=== PATIENT | female | born 1960 | race Caucasian/White ===

== ENCOUNTER 2017-05-02 18:29 | Emergency (ER) | payer OTHER ==
[2017-05-02 18:48] VITALS: BP 144/80
--- NOTE | 2017-05-02 19:42 | RAD ---
Indication: Right rib pain. 3 views of the right ribs are reviewed. There is no fracture or dislocation noted. No pneumothorax is noted. There is superior subluxation of the right humeral head. No alveolar consolidation is noted. IMPRESSION: No fracture of the right ribs is noted.
--- NOTE | 2017-05-02 20:44 | UC ---
UC General HPI - HPI Summary HPI Summary: RIGHT LOWER RIB PAIN, PAIN WITH DEEP BREATH. STILL HAS GALLBLADDER. NO COUGH. NO CHEST PAIN. HISTORY OF PNEUMONIA SEVERAL TIMES LAST YEAR. NO FEVER. NO NAUSEA OR VOMITING - History of Current Complaint Chief Complaint: UCRespiratory Stated Complaint: RIB PAIN Time Seen by Provider: 05/02/17 18:52 Hx Obtained From: Patient Hx Last Menstrual Period: Sep 2012 (currently going through menopause) Onset/Duration: Gradual Onset, Lasting Days, Still Present Timing: Intermittent Episodes Lasting: Onset Severity: Moderate Current Severity: Mild Pain Intensity: 2 Associated Signs & Symptoms: Positive: Abdominal Pain - ?RUQ, Other - RIGHT LOWER RIB PAIN. Negative: Cough, Chest Pain, Diarrhea, Dysuria, Edema, Fever, Headache, Syncope, SOB, Trauma, Wheezing - Allergy/Home Medications Allergies/Adverse Reactions: Allergies Allergy/AdvReac Type Severity Reaction Status Date / Time Celecoxib [From Celebrex] Allergy Severe Anaphylatic Verified 05/02/17 18:40 Shock Penicillins Allergy Severe Anaphylatic Verified 05/02/17 18:40 Shock Sulfa Drugs Allergy Severe Anaphylatic Verified 05/02/17 18:40 Shock Infliximab [From Remicade] Allergy Unknown neurological Verified 05/02/17 18:40 symptoms Azathioprine Allergy Anaphylatic Verified 05/02/17 18:40 Shock ENVIRONMENTAL Allergy Post Nasal Uncoded 08/03/16 07:37 Drip Home Medications: Home Medications Bp Med* 1 tab PO DAILY 05/02/17 [History Confirmed 05/02/17] Ibuprofen TAB* [Advil TAB*] 400 mg PO PRN 05/02/17 [History] Potassium Injection* MONTHLY 05/02/17 [History] Valsartan TAB* [Diovan TAB*] 05/02/17 [History] PMH/Surg Hx/FS Hx/Imm Hx Previously Healthy: Yes - Surgical History Surgical History: Yes Surgery Procedure, Year, and Place: 1995 RESECTION OF COLON(LARGE PORTION OF LARGE INTESTINES, [place]. 2005 EXCISION OF VULVAR LESION RIGHT SIDE, [facility] [place]. 2011 DILATION CURETTAGE, HYSTEROSCOPY, POLYPECTOMY WITH CERVICAL BIOPSY, [facility] [place]. 2013 BILATERAL HIP REPLACEMENT, [place], [place]. 2014 LUMBAR DISCECTOMY, [place], [place] - Family History Known Family History: Positive: Hypertension - Social History Occupation: Employed Full-time Lives: With Family Alcohol Use: Occasionally Substance Use Type: None Smoking Status (MU): Former Smoker Type: Cigarettes Amount Used/How Often: 3 PPD Length of Time of Smoking/Using Tobacco: 13 YEARS Have You Smoked in the Last Year: No When Did the Patient Quit Smoking/Using Tobacco: 1985 Review of Systems Constitutional: Negative Skin: Negative Eyes: Negative ENT: Negative Respiratory: Negative Cardiovascular: Negative Gastrointestinal: Abdominal Pain - MILD RUQ ABDOMINAL PAIN Genitourinary: Negative Motor: Negative Neurovascular: Negative Musculoskeletal: Arthralgia - RIGHT LOWER RIB Neurological: Negative Psychological: Negative All Other Systems Reviewed And Are Negative: Yes Physical Exam Triage Information Reviewed: Yes Appearance: Well-Appearing, No Pain Distress, Well-Nourished Vital Signs: Initial Vital Signs Temp 98.9 F 05/02/17 18:33 Pulse 92 05/02/17 18:33 Resp 20 05/02/17 18:33 Pulse Ox 100 05/02/17 18:33 Vital Signs Reviewed: Yes Eye Exam: Normal ENT Exam: Normal ENT: Positive: Normal ENT inspection, Hearing grossly normal, TMs normal Dental Exam: Normal Neck exam: Normal Neck: Positive: Supple, Nontender Respiratory: Positive: Lungs clear, Normal breath sounds, No respiratory distress, No accessory muscle use. Negative: Chest non-tender - RIGHT LOWER RIB TENDERNESS Cardiovascular Exam: Normal Cardiovascular: Positive: RRR, No Murmur, Pulses Normal Abdomen Description: Positive: No Organomegaly, Soft. Negative: Nontender - RUQ Musculoskeletal Exam: Normal Musculoskeletal: Positive: Strength Intact, ROM Intact Neurological Exam: Normal Psychological Exam: Normal Skin Exam: Normal Course/Dx - Course Course Of Treatment: DEBINET ADVISED TO SEEK CARE T EMERGENCY DEPARTMENT IF CONDITION CONTINUES, WORSENS OR IF NEW SYMPTOMS DEVELOP - Differential Dx - Multi-Symptom Differential Diagnoses: Metabolic Abnormality, Sepsis, Other - GALL BLADDER, LIVER DISEASE, CROHNS Provider Diagnoses: RIGHT LOWER RIB PAIN Discharge - Discharge Plan Condition: Stable Disposition: HOME Patient Education Materials: Rib Contusion (ED) Referrals: Wilfredo Greene MD [Primary Care Provider] - Additional Instructions: PLEASE SEEK PROMPT EVALUATION OF RUQ PAIN. SEEK CARE IMMEDIATELY IF YOU EXPERIENCE WORSENING RUQ, FEVER, OR ANY NEW SYMPTOMS.
== END 2017-05-02 20:15 | disposition home or self-care (01) ==
LOC: UCEAST 18:29
DX: R07.81 Pleurodynia (principal); Z88.0 Allergy status to penicillin; Z88.2 Allergy status to sulfonamides; Z88.8 Allergy status to other drugs, medicaments and biological substances; Z87.891 Personal history of nicotine dependence
CPT/HCPCS: 99211; G0463

== ENCOUNTER 2017-05-03 16:38 | Emergency (ER) | payer OTHER ==
--- NOTE | 2017-05-03 20:12 | RAD ---
Indication: Right upper quadrant pain. Real-time sonography of the right upper quadrant was performed. The liver is enlarged measuring 20 cm in length. It is diffusely increased in echogenicity consistent with hepatic steatosis. The gallbladder demonstrates no evidence of gallstones, pericholecystic fluid or wall thickening. The common duct measures 6 mm. The right kidney measures 11.3 x 4.0 x 5.6 cm with no hydronephrosis. The pancreas demonstrates no mass or pancreatic duct dilatation where visualized. Aorta and inferior vena cava are unremarkable. IMPRESSION: Enlarged echogenic liver consistent with hepatic steatosis. No evidence of cholelithiasis or biliary duct dilatation is noted.
[2017-05-03] MEDS ORDERED: HYDROcodone/ACETAMIN 5-325 MG* 1 TAB PO ONE (21:38)
[2017-05-03] MEDS ORDERED: HYDROcodone/ACETAMIN 5-325 MG* 1 TAB ONE (22:26)
[2017-05-03 22:37] VITALS: BP 156/89
--- NOTE | 2017-05-03 22:51 | ED ---
Ann Becerra Alfonso, scribed for Alex Shell MD on 05/03/17 at 1915 . Abdominal Pain/Female - HPI Summary HPI Summary: This patient is a 57 year old F presenting to [facility] with a chief complaint of RUQ abdominal pain since a few days ago. The patient rates the pain 8/10 in severity. Symptoms aggravated by nothing. Symptoms alleviated by nothing. Patient reports cough, and right lower rib pain. Patient denies calf swelling, CP, fever, nausea, and vomiting. PMHx includes Crohns disease, multiple myeloma. - History of Current Complaint Chief Complaint: EDAbdPain Stated Complaint: RT SIDED ABD PAIN Time Seen by Provider: 05/03/17 18:26 Hx Obtained From: Patient Onset/Duration: Sudden Onset, Lasting Days, Still Present Timing: Constant Severity Initially: Severe Severity Currently: Severe Pain Intensity: 8 Pain Scale Used: 0-10 Numeric Location: Discrete At: RUQ Aggravating Factor(s): Nothing Alleviating Factor(s): Nothing Associated Signs and Symptoms: Positive: Other: - cough, and right lower rib pain. Patient denies calf swelling, CP, fever, nausea, and vomiting. Allergies/Adverse Reactions: Allergies Allergy/AdvReac Type Severity Reaction Status Date / Time Celecoxib [From Celebrex] Allergy Severe Anaphylatic Verified 05/02/17 18:40 Shock Penicillins Allergy Severe Anaphylatic Verified 05/02/17 18:40 Shock Sulfa Drugs Allergy Severe Anaphylatic Verified 05/02/17 18:40 Shock Infliximab [From Remicade] Allergy Unknown neurological Verified 05/02/17 18:40 symptoms Azathioprine Allergy Anaphylatic Verified 05/02/17 18:40 Shock ENVIRONMENTAL Allergy Post Nasal Uncoded 08/03/16 07:37 Drip PMH/Surg Hx/FS Hx/Imm Hx Endocrine/Hematology History: Reports: 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 Denies: Hx Diabetes Cardiovascular History: Reports: Hx Hypertension - CONTROL WITH MEDS, Other Cardiovascular Problems/Disorders - DVT IN LEG 30 YEARS AGO Denies: Hx Pacemaker/ICD Respiratory History: Reports: Hx Asthma, Hx Chronic Obstructive Pulmonary Disease (COPD) - YES ?, Other Respiratory Problems/Disorders - RECENT URI - NO PROBLEMS NOW GI History: Reports: Hx Crohn's Disease, Hx Gastroesophageal Reflux Disease - ACID REFLUX - PRN MEDS History: Denies: Hx Dialysis, Hx Renal Disease Musculoskeletal History: Reports: Hx Arthritis - GENERALIZED, Hx Back Problems - chronic low back pain Denies: Hx Osteoporosis Sensory History: Reports: Hx Contacts or Glasses - GLASSES Denies: Hx Hearing Aid Opthamlomology History: Reports: Hx Contacts or Glasses - GLASSES Neurological History: Reports: Other Neuro Impairments/Disorders - 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 2005 EXCISION OF VULVAR LESION RIGHT SIDE, [facility] [place]. 2011 DILATION CURETTAGE, HYSTEROSCOPY, POLYPECTOMY WITH CERVICAL BIOPSY, [facility] [place]. 2012 BILATERAL HIP REPLACEMENT, [place], [place]. 2014 LUMBAR DISCECTOMY, [place], [place] Hx Anesthesia Reactions: Yes - WOKE DURING ONE OF HIP SURGERY RELATED TO "MEDICATION PUSH" Infectious Disease History: Reports: Hx Shingles Denies: Traveled Outside the in Last 30 Days - Family History Known Family History: Positive: Hypertension - Social History Alcohol Use: Occasionally Substance Use Type: Reports: None Hx Tobacco Use: No Smoking Status (MU): Former Smoker Type: Cigarettes Amount Used/How Often: 3 PPD Length of Time of Smoking/Using Tobacco: 13 YEARS Have You Smoked in the Last Year: No Review of Systems Negative: Fever Negative: Chest Pain Positive: Cough Positive: Abdominal Pain. Negative: Vomiting, Nausea Positive: Other - right lower rib pain; negative calf swelling All Other Systems Reviewed And Are Negative: Yes Physical Exam Triage Information Reviewed: Yes Vital Signs On Initial Exam: Initial Vitals Temp Pulse Resp BP Pulse Ox 97.4 F 78 20 177/110 100 05/03/17 16:47 05/03/17 16:47 05/03/17 16:47 05/03/17 16:47 05/03/17 16:47 Vital Signs Reviewed: Yes Appearance: Positive: Well-Appearing, No Pain Distress Skin: Positive: Warm, Skin Color Reflects Adequate Perfusion, Dry Head/Face: Positive: Normal Head/Face Inspection Eyes: Positive: Normal ENT: Positive: Normal ENT inspection Neck: Positive: Supple, Nontender Respiratory/Lung Sounds: Positive: Clear to Auscultation, Breath Sounds Present Cardiovascular: Positive: RRR Abdomen Description: Positive: Soft, Other: - Tender in the right anterior lateral lower ribs. Mild RUQ tenderness. Bowel Sounds: Positive: Present Musculoskeletal: Positive: Normal Neurological: Positive: Normal, Sensory/Motor Intact, Alert, Oriented to Person Place, Time, CN Intact II-III Psychiatric: Positive: Affect/Mood Appropriate - [place] Coma Scale Coma Scale Total: 15 Diagnostics - Vital Signs Vital Signs Temp Pulse Resp BP Pulse Ox 05/03/17 18:43 98.4 F 99 20 163/78 99 05/03/17 16:47 97.4 F 78 20 177/110 100 - Laboratory Lab Results: Lab Results 05/03/17 Range/Units 19:49 D-Dimer, Quantitative < 200 (Less Than 230) ng/mL Lab Statement: Any lab studies that have been ordered have been reviewed, and results considered in the medical decision making process. - Additional Comments Diagnostic Additional Comments: US GALL BLADDER reveals, per radiologist, Enlarged echogenic liver consistent with hepatic steatosis. No evidence of cholelithiasis or biliary duct dilatation is noted. ED physician has reviewed this radiology report and agrees. Abdominal Pain Fem Course/Dx - Course Course Of Treatment: Ms. Garces presented with right chest wall pain that is getting worse. She was diagnosed yesterday. Her W/U here was negative and I gave her some pain medicine. - Diagnoses Provider Diagnoses: Chest wall pain Discharge - Discharge Plan Condition: Stable Disposition: HOME Prescriptions: HYDROcodone/ACETAMIN 5-325 MG* [Soldier 5-325 TAB*] 1 tab PO Q6H PRN #20 tab MDD 4 PRN Reason: Pain Patient Education Materials: Chest Wall Pain (ED) Referrals: Wilfredo Greene MD [Primary Care Provider] - The documentation as recorded by the Ann hernández Alfonso accurately reflects the service I personally performed and the decisions made by me, Alex Shell MD.
== END 2017-05-03 22:34 | disposition home or self-care (01) ==
LOC: ED 16:38
DX: R07.89 Other chest pain (principal); Z87.891 Personal history of nicotine dependence; C90.00 Multiple myeloma not having achieved remission; M19.90 Unspecified osteoarthritis, unspecified site; I10 Essential (primary) hypertension; J44.9 Chronic obstructive pulmonary disease, unspecified; K21.9 Gastro-esophageal reflux disease without esophagitis; R10.11 Right upper quadrant pain
CPT/HCPCS: 36415; 76705; 85379; 99282

== ENCOUNTER 2018-01-03 08:54 | Emergency (ER) | payer OTHER ==
[2018-01-03] MEDS ORDERED: HYDROcodone/ACETAMIN 5-325 MG* 1 TAB PO ONE (09:29)
--- NOTE | 2018-01-03 10:00 | RAD ---
INDICATION: RIGHT side chest pain. Bronchitis. Cough for 10 days. COMPARISON: August 13, 2017 TECHNIQUE: Dual energy PA and routine lateral views of the chest were obtained. REPORT: Mildly elevated lung volumes. Minimal linear atelectasis at the LEFT mid to lower lung zone without change. No alveolar consolidation concerning for pneumonia. No suspicious focal pulmonary lesion, pleural effusion, or pneumothorax. The heart, pulmonary vasculature, and mediastinal contours are unremarkable. IMPRESSION: Stigmata of potential obstructive lung disease. No evidence for pneumonia.
[2018-01-03] MEDS ORDERED: LORazepam TAB(*) 1 MG PO ONE (12:03)
[2018-01-03 12:21] LABS: Hematocrit 38 % (35-47); Hemoglobin 12.3 g/dl (12.0-16.0); Mean Corpuscular HGB Conc 33 g/dl (31-36); Mean Corpuscular Hemoglobin 30 pg (27-31); Mean Corpuscular Volume 90 fL (80-97); Mean Platelet Volume 7.8 um3 (7.4-10.4); Platelet Count 266 10^3/ul (150-450); Red Blood Count 4.17 10^6/ul (4.0-5.4); Red Cell Distribution Width 14 % (10.5-15); White Blood Count 11.6 10^3/ul (3.5-10.8)
[2018-01-03 12:49] LABS: EGFR Non-African American 98.9 (>60)
[2018-01-03 13:05] LABS: ABS Basophils 0.1 10^3/ul (0-0.2); ABS Eosinophils 0.2 10^3/ul (0-0.6); ABS Lymphocytes 1.8 10^3/ul (1.0-4.8); ABS Monocytes 0.6 10^3/ul (0-0.8)
[2018-01-03 13:07] LABS: Monocytes % 6 % (0-7)
[2018-01-03 15:36] VITALS: BP 143/80
--- NOTE | 2018-01-03 18:31 | ED ---
Vik Becerra Stephanie, scribed for Alex Shell MD on 01/03/18 at 0926 . Complex/Multi-Sys Presentation - HPI Summary HPI Summary: The pt is a 57 y/o F presenting to the ED with c/o R lateral rib pain that began 2 days ago. The pt believes she has broken a rib as a result from coughing. She is currently being treated for bronchitis. She is taking levaquin and she took 2 Advil [employer]. - History Of Current Complaint Chief Complaint: EDChestWallPain Time Seen by Provider: 01/03/18 09:07 Hx Obtained From: Patient Onset/Duration: Gradual Onset, Lasting Days - 2, Still Present Timing: Constant Severity Currently: Moderate Location: Pain At: - R side of ribs Character: Sharp Aggravating Factor(s): movement Alleviating Factor(s): nothing Associated Signs And Symptoms: Positive: Cough, Other - Allergies/Home Medications Allergies/Adverse Reactions: Allergies Allergy/AdvReac Type Severity Reaction Status Date / Time azathioprine Allergy Severe Anaphylatic Verified 01/03/18 10:08 Shock celecoxib [From Celebrex] Allergy Severe Anaphylatic Verified 01/03/18 10:05 Shock Penicillins Allergy Severe Anaphylatic Verified 01/03/18 10:06 Shock Sulfa (Sulfonamide Allergy Severe Anaphylatic Verified 01/03/18 10:07 Antibiotics) Shock infliximab [From Remicade] Allergy Unknown Unknown Verified 01/03/18 10:08 Reaction Details ENVIRONMENTAL Allergy Runny Nose Uncoded 01/03/18 10:09 Home Medications: Home Medications Levofloxacin TAB* [Levaquin TAB*] 500 mg PO DAILY 01/03/18 [History Confirmed ] Potassium Chlor TAB* [Klor Con ER TAB*] 20 meq PO DAILY 01/03/18 [History Confirmed 01/03/18] Promethazine/Dextromethorphan [Promethazine-Dm Syrup] 10 ml PO Q6HR PRN [History Confirmed 01/03/18] Spironolactone TAB* [Aldactone TAB*] 25 mg PO DAILY 01/03/18 [History Confirmed 01/03/18] Valsartan TAB* [Diovan TAB*] 320 mg PO DAILY 01/03/18 [History Confirmed ] amLODIPine TAB* [Norvasc 5 mg TAB*] 10 mg PO DAILY 01/03/18 [History Confirmed 01/03/18] guaiFENesin LIQ* [Robitussin*] 10 ml PO Q8HR PRN 01/03/18 [History Confirmed 12/18] PMH/Surg Hx/FS Hx/Imm Hx Endocrine/Hematology History: Reports: 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 Denies: Hx Diabetes Cardiovascular History: Reports: Hx Hypertension - CONTROL WITH MEDS, Other Cardiovascular Problems/Disorders - DVT IN LEG 30 YEARS AGO Denies: Hx Pacemaker/ICD Respiratory History: Reports: Hx Asthma, Hx Chronic Obstructive Pulmonary Disease (COPD) - YES ?, Other Respiratory Problems/Disorders - RECENT URI - NO PROBLEMS NOW GI History: Reports: Hx Crohn's Disease, Hx Gastroesophageal Reflux Disease - ACID REFLUX - PRN MEDS History: Denies: Hx Dialysis, Hx Renal Disease Musculoskeletal History: Reports: Hx Arthritis - GENERALIZED, Hx Back Problems - chronic low back pain Denies: Hx Osteoporosis Sensory History: Reports: Hx Contacts or Glasses - GLASSES Denies: Hx Hearing Aid Opthamlomology History: Reports: Hx Contacts or Glasses - GLASSES Neurological History: Reports: Other Neuro Impairments/Disorders - 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 2005 EXCISION OF VULVAR LESION RIGHT SIDE, [facility] [place]. 2011 DILATION CURETTAGE, HYSTEROSCOPY, POLYPECTOMY WITH CERVICAL BIOPSY, [facility] [place]. 2013 BILATERAL HIP REPLACEMENT, [place], [place]. 2014 LUMBAR DISCECTOMY, [place], [place] Hx Anesthesia Reactions: Yes - WOKE DURING ONE OF HIP SURGERY RELATED TO "MEDICATION PUSH" Infectious Disease History: No Infectious Disease History: Reports: Hx Shingles Denies: Traveled Outside the in Last 30 Days - Family History Known Family History: Positive: Hypertension - Social History Occupation: Employed Full-time Lives: Alone Alcohol Use: Occasionally Hx Substance Use: No Substance Use Type: Reports: None Hx Tobacco Use: No Smoking Status (MU): Former Smoker Type: Cigarettes Amount Used/How Often: 3 PPD Length of Time of Smoking/Using Tobacco: 13 YEARS Have You Smoked in the Last Year: No Review of Systems Negative: Fever Positive: Cough Positive: Other - R sided lateral rib pain All Other Systems Reviewed And Are Negative: Yes Physical Exam - Summary Physical Exam Summary: Appearance: The patient is well-nourished in no acute distress and in no acute pain. Skin: The skin is warm and dry and skin color reflects adequate perfusion. HEENT: The head is normocephalic and atraumatic. The pupils are equal and reactive. The conjunctivae are clear and without drainage. Nares are patent and without drainage. Mouth reveals moist mucous membranes and the throat is without erythema and exudate. The external ears are intact. The ear canals are patent and without drainage. The tympanic membranes are intact. Neck: the neck is supple with full range of motion and non-tender. There are no carotid bruits. There is no neck vein distension. Respiratory: Chest is non-tender. Lungs are clear to auscultation and breath sounds are symmetrical and equal. Cardiovascular: Heart is regular rate and rhythm. There is no murmur or rub auscultated. There is no peripheral edema and pulses are symmetrical and equal. Abdomen: The abdomen is soft and non-tender. There are normal bowel sounds heard in all four quadrants and there is no organomegaly palpated. Musculoskeletal: There is no back tenderness noted. Extremities are non-tender with full range of motion. There is good capillary refill. There is no peripheral edema or calf tenderness elicited. She is tender over anterolateral R lower chest wall Neurological: Patient is alert and oriented to person, place and time. The patient has symmetrical motor strength in all four extremities. Cranial nerves are grossly intact. Deep tendon reflexes are symmetrical and equal in all four extremities. Psychiatric: The patient has an appropriate affect and does not exhibit any anxiety or depression. Triage Information Reviewed: Yes Vital Signs On Initial Exam: Initial Vitals Temp Pulse Resp BP Pulse Ox 98.7 F 95 17 149/88 97 01/03/18 08:56 01/03/18 08:56 01/03/18 08:56 01/03/18 08:56 01/03/18 08:56 Vital Signs Reviewed: Yes Diagnostics - Vital Signs Vital Signs Temp Pulse Resp BP Pulse Ox 01/03/18 08:56 98.7 F 95 17 149/88 97 - Laboratory Lab Results: Lab Results 01/03/18 01/03/18 01/03/18 Range/Units 12:07 12:07 12:08 WBC 11.6 H (3.5-10.8) 10^3/ul RBC 4.17 (4.0-5.4) 10^6/ul Hgb 12.3 (12.0-16.0) g/dl Hct 38 (35-47) % MCV 90 (80-97) fL MCH 30 (27-31) pg MCHC 33 (31-36) g/dl RDW 14 (10.5-15) % Plt Count 266 (150-450) 10^3/ul MPV 7.8 (7.4-10.4) um3 Neut % (Auto) Not Reportable Lymph % (Auto) Not Reportable Cook % (Auto) Not Reportable Eos % (Auto) Not Reportable Baso % (Auto) Not Reportable Absolute Neuts (auto) 9.0 H (1.5-7.7) 10^3/ul Absolute Lymphs (auto) 1.8 (1.0-4.8) 10^3/ul Absolute Monos (auto) 0.6 (0-0.8) 10^3/ul Absolute Eos (auto) 0.2 (0-0.6) 10^3/ul Absolute Basos (auto) 0.1 (0-0.2) 10^3/ul Absolute Nucleated RBC Not Reportable Immature Gran % 1 (0-9) % Neutrophils % 79 (38-83) % Lymphocytes % 10 L (25-47) % Reactive Lymphs % 2 (0-6) % Monocytes % 6 (0-7) % Eosinophils % 2 (0-6) % Basophils % 0 (0-2) % Myelocytes % 1 (0-1) % Nucleated RBC % Not Reportable Abs Neuts (Manual) 9.2 H (1.5-7.7) 10^3/ul Abs Lymphs (Manual) 1.2 (1.0-4.8) 10^3/ul Abs Monocytes (Manual) 0.7 (0-0.8) 10^3/ul Absolute Eos (Manual) 0.2 (0-0.6) 10^3/ul Abs Basophils (Manual) 0 (0-0.2) 10^3/ul Normal RBC Morphology Normal (Normal) Hem Pathologist Commnt D-Dimer, Quantitative 210 (Less Than 230) ng/mL Sodium 141 (139-145) mmol/L Potassium 4.2 (3.5-5.0) mmol/L Chloride 108 (101-111) mmol/L Carbon Dioxide 27 (22-32) mmol/L Anion Gap 6 (2-11) mmol/L BUN 12 (6-24) mg/dL Creatinine 0.62 (0.51-0.95) mg/dL Est GFR ( Amer) 127.1 (>60) Est GFR (Non-Af Amer) 98.9 (>60) BUN/Creatinine Ratio 19.4 (8-20) Glucose 109 H (70-100) mg/dL Calcium 8.8 (8.6-10.3) mg/dL Total Bilirubin 0.30 (0.2-1.0) mg/dL AST 21 (13-39) U/L ALT 26 (7-52) U/L Alkaline Phosphatase 90 (34-104) U/L Total Protein 7.5 (6.4-8.9) g/dL Albumin 3.5 (3.2-5.2) g/dL Globulin 4.0 (2-4) g/dL Albumin/Globulin Ratio 0.9 L (1-3) Result Diagrams: 01/03/18 12:07 01/03/18 12:08 Lab Statement: Any lab studies that have been ordered have been reviewed, and results considered in the medical decision making process. - Radiology CXR Xray Interpretation: No Acute Changes Radiology Interpretation Completed By: Radiologist - Stigmata of potential obstructive lung disease. No evidence for pneumonia. ED physician has reviewed this report. Re-Evaluation - Re-Evaluation First Eval Re-Evaluation Time: 13:59 Change: Unchanged - The pt states she feels no improvement of symptoms at this time. Second Eval Re-Evaluation Time: 15:05 Change: Unchanged - The pt states she feels unchanged at this time. Complex Multi-Symp Course/Dx Course Of Treatment: Ms. Garces was diagnosed with bronchitis recently and given antibiotics which has helped. She feels like she may have broken a rib on the right from all the coughing which has happened in the past. She didn't want any tests but relented when her pain wasn't easily controlled with medication. The W/U was WNL and it certainly seems like a chest wall pain and could still be a rib injury. - Diagnoses Provider Diagnoses: Chest wall pain Discharge - Sign-Out/Discharge Documenting (check all that apply): Discharge/Admit/Transfer - discharge - Discharge Plan Condition: Stable Disposition: HOME Prescriptions: Hydrocodone/Acetaminophen [[place] 10-325 Tablet] 1 each PO Q6HR #20 tablet MDD 4 LORazepam TAB(*) [Ativan TAB(*)] 1 mg PO Q6H PRN #20 tab MDD 4 PRN Reason: Pain Patient Education Materials: Chest Wall Pain (ED) Referrals: Wilfredo Greene MD [Primary Care Provider] - 2 Days Additional Instructions: Return to ED for new or worsening symptoms. - Billing Disposition and Condition Condition: STABLE Disposition: HOME The documentation as recorded by the Vik hernández Stephanie accurately reflects the service I personally performed and the decisions made by me, Alex Shell MD.
== END 2018-01-03 15:34 | disposition home or self-care (01) ==
LOC: ED 08:54
DX: R07.9 Chest pain, unspecified (principal); J40 Bronchitis, not specified as acute or chronic; Z87.891 Personal history of nicotine dependence; I10 Essential (primary) hypertension; C90.00 Multiple myeloma not having achieved remission; J44.9 Chronic obstructive pulmonary disease, unspecified; Z88.2 Allergy status to sulfonamides
CPT/HCPCS: 36415; 71046; 80053; 85025; 85060; 85379; 99283; A9270-GY

== ENCOUNTER 2018-01-19 22:37 | Emergency (ER) | payer OTHER ==
--- NOTE | 2018-01-19 23:11 | ED ---
Lower Extremity - HPI Summary HPI Summary: Complains of swelling in left lower extremity 1 week, with pain in the lower calf starting today. Pain worse with dorsiflexion or plantar flexion. States has been very inactive today and yesterday due to not feeling well. Denies loss of sensation or function, trauma.. History of blood clot in her left lower leg when she was 19. Denies recent estrogen supplements, recent surgery or trauma, smoking, CP, SOB. No anti-coag. Also denies fever, cough, sore throat, N/V/D, abdomen pain, change in urinary BM. Medical history is asthma, HTN, multiple myeloma, arthritis. - History of Current Complaint Chief Complaint: EDExtremityLower Stated Complaint: LT LEG SWOLLEN Time Seen by Provider: 01/19/18 22:50 Hx Obtained From: Patient Hx Last Menstrual Period: Sep 2012 (currently going through menopause) Mechanism Of Injury: Unknown Onset of Pain: Days Onset/Duration: Days Severity Currently: Moderate Pain Intensity: 7 Pain Scale Used: 0-10 Numeric Aggravating Factor(s): Ambulation Alleviating Factor(s): Elevation Able to Bear Weight: Yes - Risk Factors DVT Risk Factors: Prior DVT - Allergies/Home Medications Allergies/Adverse Reactions: Allergies Allergy/AdvReac Type Severity Reaction Status Date / Time azathioprine Allergy Severe Anaphylatic Verified 01/19/18 22:43 Shock celecoxib [From Celebrex] Allergy Severe Anaphylatic Verified 01/19/18 22:43 Shock Penicillins Allergy Severe Anaphylatic Verified 01/19/18 22:43 Shock Sulfa (Sulfonamide Allergy Severe Anaphylatic Verified 01/19/18 22:43 Antibiotics) Shock infliximab [From Remicade] Allergy Unknown Unknown Verified 01/19/18 22:43 Reaction Details ENVIRONMENTAL Allergy Runny Nose Uncoded 01/19/18 22:43 PMH/Surg Hx/FS Hx/Imm Hx Endocrine/Hematology History: Reports: 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 Denies: Hx Diabetes Cardiovascular History: Reports: Hx Hypertension - CONTROL WITH MEDS, Other Cardiovascular Problems/Disorders - DVT IN LEG 30 YEARS AGO Denies: Hx Pacemaker/ICD Respiratory History: Reports: Hx Asthma, Hx Chronic Obstructive Pulmonary Disease (COPD) - YES ?, Other Respiratory Problems/Disorders - RECENT URI - NO PROBLEMS NOW GI History: Reports: Hx Crohn's Disease, Hx Gastroesophageal Reflux Disease - ACID REFLUX - PRN MEDS History: Denies: Hx Dialysis, Hx Renal Disease Musculoskeletal History: Reports: Hx Arthritis - GENERALIZED, Hx Back Problems - chronic low back pain Denies: Hx Osteoporosis Sensory History: Reports: Hx Contacts or Glasses - GLASSES Denies: Hx Hearing Aid Opthamlomology History: Reports: Hx Contacts or Glasses - GLASSES Neurological History: Reports: Other Neuro Impairments/Disorders - 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 2005 [place] L[place] [facility] [place] DILATION CURETTAGE, HYSTEROSCOPY, POLYPECTOMY WITH CERVICAL BIOPSY, [facility] [place]. 2012 BILATERAL HIP REPLACEMENT, [place], [place]. 2014 LUMBAR DISCECTOMY, [place], [place] Hx Anesthesia Reactions: Yes - WOKE DURING ONE OF HIP SURGERY RELATED TO "MEDICATION PUSH" - Immunization History Date of Tetanus Vaccine: utd Date of Influenza Vaccine: utd Infectious Disease History: No Infectious Disease History: Reports: Hx Shingles Denies: Traveled Outside the in Last 30 Days - Family History Known Family History: Positive: Hypertension - Social History Alcohol Use: Occasionally Hx Substance Use: No Substance Use Type: Reports: None Hx Tobacco Use: No Smoking Status (MU): Former Smoker Type: Cigarettes Amount Used/How Often: 3 PPD Length of Time of Smoking/Using Tobacco: 13 YEARS Have You Smoked in the Last Year: No Review of Systems Constitutional: Negative Eyes: Negative ENT: Negative Cardiovascular: Negative Respiratory: Negative Gastrointestinal: Negative Genitourinary: Negative Musculoskeletal: Negative Skin: Negative Neurological: Negative Psychological: Normal All Other Systems Reviewed And Are Negative: Yes Physical Exam - Summary Physical Exam Summary: Swelling with pitting edema to left lower extremity. Positive calf tenderness. Positive Homans sign, pain with dorsiflexion and plantar flexion. No erythema , extra warmth, ecchymosis to left lower extremity noted. Pulses present. PMS intact. Patient states no pain at rest, pain with dorsiflexion, plantar flexion and palpation of left calf. Triage Information Reviewed: Yes Vital Signs On Initial Exam: Initial Vitals Temp Pulse Resp BP Pulse Ox 97.6 F 109 20 186/123 97 05/20/18 22:38 01/19/18 22:38 01/19/18 22:38 01/19/18 22:38 01/19/18 22:38 Vital Signs Reviewed: Yes Appearance: Positive: Well-Appearing Skin: Positive: Warm Head/Face: Positive: Normal Head/Face Inspection Eyes: Positive: Normal Neck: Positive: Supple Respiratory/Lung Sounds: Positive: Clear to Auscultation Cardiovascular: Positive: Normal Abdomen Description: Positive: Nontender Musculoskeletal: Positive: Normal Neurological: Positive: Normal Psychiatric: Positive: Normal AVPU Assessment: Alert - [place] Coma Scale Best Eye Response: 4 - Spontaneous Best Motor Response: 6 - Obeys Commands Best Verbal Response: 5 - Oriented Coma Scale Total: 15 Diagnostics - Vital Signs Vital Signs Temp Pulse Resp BP Pulse Ox 01/19/18 23:03 184/90 01/19/18 22:38 97.6 F 109 20 186/123 97 - Laboratory Result Diagrams: 01/20/18 00:59 01/20/18 00:59 Lab Statement: Any lab studies that have been ordered have been reviewed, and results considered in the medical decision making process. - Ultrasound No standard instances Ultrasound Interpretation: No Acute Changes - No DVT Ultrasound Interpretation Completed By: Radiologist Lower Extremity Course/Dx - Course Course Of Treatment: Left lower extremity swelling and Tenderness. No indication of DVT per ultrasound. Labs and vital signs within normal limits. Follow-up with primary care. - Diagnoses Provider Diagnoses: Swelling of left lower extremity Discharge - Sign-Out/Discharge Documenting (check all that apply): Discharge/Admit/Transfer - Discharge Plan Condition: Stable Disposition: HOME Patient Education Materials: Leg Edema (ED) Referrals: Wilfredo Greene MD [Primary Care Provider] - Additional Instructions: Follow-up with primary care. Return to the ED for any new or worsening symptoms - Billing Disposition and Condition Condition: STABLE Disposition: HOME
[2018-01-20 01:13] LABS: ABS Basophils 0.2 10^3/ul (0-0.2); ABS Eosinophils 0.3 10^3/ul (0-0.6); ABS Lymphocytes 2.7 10^3/ul (1.0-4.8); ABS Monocytes 0.8 10^3/ul (0-0.8); ABS Neutrophils 8.2 10^3/ul (1.5-7.7); ABS Nucleated RBC 0 10^3/ul; Eosinophil % 2.3 % (0-6); Hematocrit 37 % (35-47); Hemoglobin 12.1 g/dl (12.0-16.0); Lymphocyte % 22.1 % (25-47); Mean Corpuscular HGB Conc 33 g/dl (31-36); Mean Corpuscular Hemoglobin 30 pg (27-31); Mean Corpuscular Volume 89 fL (80-97); Nucleated Red Blood Cells % 0.1; Platelet Count 277 10^3/ul (150-450); Red Blood Count 4.09 10^6/ul (4.0-5.4); Red Cell Distribution Width 14 % (10.5-15); White Blood Count 12.1 10^3/ul (3.5-10.8)
[2018-01-20 01:30] LABS: EGFR Non-African American 79.4 (>60)
[2018-01-20 02:11] VITALS: BP 182/68
--- NOTE | 2018-01-20 07:55 | RAD ---
INDICATION: Pain and swelling. COMPARISON: None TECHNIQUE: Duplex interrogation of the Lowerextremity was performed. FINDINGS: Deep veins: The common femoral, great saphenous, profunda femoris, proximal, mid, and distal deep femoral, popliteal, posterior tibial, and peroneal veins are patent. There is normal compressibility, augmentation, and phasic flow. Superficial veins: There are no findings of superficial thrombophlebitis. Popliteal fossa:There is no evidence of a popliteal cyst. Soft tissues:There are no soft tissue abnormalities. IMPRESSION: Normal examination. No evidence of deep venous thrombosis
== END 2018-01-20 02:07 | disposition home or self-care (01) ==
LOC: ED 22:37
DX: R60.0 Localized edema (principal); I10 Essential (primary) hypertension; C90.00 Multiple myeloma not having achieved remission; Z86.718 Personal history of other venous thrombosis and embolism; J44.9 Chronic obstructive pulmonary disease, unspecified; K21.9 Gastro-esophageal reflux disease without esophagitis; Z88.0 Allergy status to penicillin; Z88.2 Allergy status to sulfonamides; Z88.8 Allergy status to other drugs, medicaments and biological substances; Z87.891 Personal history of nicotine dependence
CPT/HCPCS: 36415; 80053; 85025; 99283

== ENCOUNTER 2018-06-30 12:20 | Emergency (ER) | payer OTHER ==
--- OUTSIDE RECORDS SUMMARY | 2018-06-30 12:26 | XMS REPORT ---
:1960 External Reference #:[id number] Author Organization [facility] Address [address] [place] [address] Phone [phone] Care Team Providers Name Role Phone Wilfredo Scanlon MD Primary Care Physician Unavailable Payers Type Date Identification Numbers Payment Provider Subscriber Commercial Policy Number: [id number] [employer] Emmanuelle Garces Group Number: [id number] [id number] Group Name: [place] [address] PayID: [id number] Problems Date Description Provider Status Onset: 10/18/2015 Skin sensation disturbance Soo Teague M.D. Active Onset: 10/18/2015 Carpal tunnel syndrome Soo Teague M.D. Active Onset: 10/18/2015 Unsteady gait Soo Teague M.D. Active Onset: 12/20/2015 Monoclonal paraproteinemia Soo Teague M.D. Active Onset: 12/20/2015 Polyneuropathy Soo Teague M.D. Active Onset: 12/20/2015 Low back pain Soo Teague M.D. Active Onset: 02/23/2016 Multiple myeloma Soo Teague M.D. 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 ETOH Use Occasionally consumes alcohol Smoking former smoker qui9t 1986 Exercise Type/Frequency Exercises regularly Allergies, Adverse Reactions, Alerts Date Description Reaction Status Severity Comments 09/24/2013 Penicillin active 09/24/2013 Sulfa Antibiotics active 09/24/2013 Remicade active 09/24/2013 Celebrex active 10/18/2015 Azathioprine active Medications Medication Date Status Form Strength Qnty SIG Indications Ordering Provider Ondansetron HCL / Active Tablets 4mg take 1 Unknown 0000 tablet by mouth every 8 hours Amlodipine / Active Tablets 10mg Unknown Besylate 0000 Spironolactone / Active Tablets 25mg Unknown 0000 Irbesartan / Active Tablets 300mg Unknown 0000 Prilosec / Active Capsules 40mg 1 by mouth Unknown 0000 DR every day Advair Diskus / Active Aerosol 250-50mcg 1 puff by Unknown 0000 /Dose mouth twice a day Proair HFA / Active Aerosol 108(90Bas 2 puffs by Unknown 0000 e) mouth every mcg/Act 4 hours as needed Vitamin B12 TR / Active Tablets ER 1000mcg 1 by mouth Unknown 0000 every day Multi Vitamin / Active Tablets 1 by mouth Unknown 0000 every day Wrist Splint 01/04/ Hx Misc 2unit wear as Soo Marrero 2015 - s directed Zahida, 05/19/ dx: g56.01 M.DSofia 2017 g56.02 Diazepam 10/21/ Hx Tablets 5mg 2tabs 1 tab 30 Soo Marrero 2015 - minutes Zahida, 02/21/ before mri, M.D. 2015 make take a second tablet if needed Flexeril 04/09/ Hx Tablets 10mg 30tab 1 po tid Jm 2011 prn Arlene 09/24/ M.DSofia 2013 Neurontin 04/09/ Hx Capsules 300mg 40cap 1 po qhs Jm 2011 Arlene, M.DSofia 2014 Mobic 03/12/ Hx Tablets 7.5mg 60tab one tab po Jm 2011 bid prn Arlene, 09/24/ M.DSofia 2014 Valium 02/26/ Hx Tablets 5mg 2tabs 1 po 2 Jm 2011 - hours prior Arlene 09/24/ to mri december M.D. 2013 take one more at the time of the MRI Diovan /00/ Hx Unknown 0000 - 2015 Ibuprofen /00/ Hx Unknown 0000 - 2015 Vitamin /00/ Hx Unknown B-Complex 100 0000 - 2015 Valsartan-Hydroc / Hx Tablets 160-12.5m take 1 Unknown hlorothiazide 0000 - g tablet once daily 2017 Advair Diskus / Hx Aerosol 100-50mcg 1 Unknown 0000 - /Dose inhalation 05/19/ twice daily 2017 prn Vitamin B-12 / Hx injections Unknown 0000 - once monthly 2017 Pepcid / Hx Tablets 20mg 1 by mouth Unknown 0000 - every day 2015 Medications Administered in Office Medication Date Status Form Strength Qnty SIG Indications Ordering Provider Triamcinolone 05/20/ Administered Injection Darrell (Kenalog) 2017 MD Kelly Depomedrol 80MG 09/24/ Administered Injection Angely 2013 Holley Garcia Depomedrol 80MG 09/24/ Administered Injection Angely 2013 Holley Garcia Depomedrol 80MG 09/24/ Administered Injection Angely 2013 Holley Garcia Vital Signs Date Vital Result Comment 06/02/2018 Heart Rate 108 /min BP Systolic 128 mmHg BP Diastolic 90 mmHg Body Temperature 99.5 F Pain Level 8 05/20/2018 Height 60 inches 5'0" Weight 275.00 lb Heart Rate 76 /min Respiratory Rate 18 /min Pain Level 5 BMI (Body Mass Index) 53.7 kg/m2 02/23/2016 Height 66 inches 5'6" Weight 250.00 lb Heart Rate 80 /min BP Systolic Sitting 140 mmHg BP Diastolic Sitting 92 mmHg Respiratory Rate 20 /min BMI (Body Mass Index) 40.3 kg/m2 12/20/2015 Height 66 inches 5'6" Heart Rate 80 /min BP Systolic Sitting 150 mmHg BP Diastolic Sitting 88 mmHg Respiratory Rate 16 /min 10/18/2015 Height 66 inches 5'6" Weight 242.00 lb Heart Rate 76 /min BP Systolic Sitting 132 mmHg BP Diastolic Sitting 74 mmHg Respiratory Rate 16 /min BMI (Body Mass Index) 39.1 kg/m2 09/24/2013 Height 66 inches 5'6" Weight 220.00 lb Heart Rate 74 /min BP Systolic 150 mmHg BP Diastolic 90 mmHg BMI (Body Mass Index) 35.5 kg/m2 Results Test Date Test Result H/L Range Note Paraneoplastic 12/20/2015 Paraneoplastic Ab See Comment 1 Evaluation Interp Anti-Neuronal Nuclear Ab Type1 Negative titer <1:240 Reflex Added None. Anti-Neuronal Nuclear Ab Type2 Negative titer <1:240 Anti-Neuronal Nuclear Ab Type3 Negative titer <1:240 Anti-Glial/Neuronal Nuc Ab-1 A Negative titer <1:240 Purkinje Cell Cytoplasm Type 1 Negative titer <1:240 Purkinje Cell Cytoplasm Type 2 Negative titer <1:240 Purkinje Cell Cytoplasm Typ Tr Negative titer <1:240 Amphiphysin Antibody Negative titer <1:240 CRMP-5 IgG Antibody Negative titer <1:240 2 Anti-Striated Muscle Antibody Negative titer <1:120 Calcium Channel Binding Ab P/Q 0.00 nmol/L <=0.02 N Type Calcium Channel Binding 0.00 nmol/L <=0.03 ACh Receptor Muscle Binding Ab 0.00 nmol/L <=0.02 AChR Ganglionic Neuronal Ab 0.00 nmol/L <=0.02 Voltage-Gated Potassium Chann 0.00 nmol/L <=0.02 3 Leukemia/Lymphoma Flow 11/11/2015 Path Interpretation 2-8 Marker TNP Path Interpret > 16 Marker TNP Path Interpret 9-15 Marker (SEE NOTE) 4 Laboratory test finding 11/11/2015 Surgical Pathology SEE RESULT BELOW 5 Plasma Cell Profliferative 11/11/2015 Plasma Cell Dis Res Abnormal Disorder Summary Plasma Cell Prolif Specimen Bone Marrow Plasma Cell Prolif Dis Source See Comment 6 Plasma Cell Referral Reason See Comment 7 Plasma Cell Prolif Dis Method See Comment 8 Plasma Cell Dis Result Table See Comment 9 Plasma Cell Prolif Dis Results See Comment 10 Plasma Cell Dis Interpretation See Comment 11 Plasma Cell Dis Disclaimer See Comment 12 Plasma Cell Dis Released By See Comment 13 Laboratory test finding 10/18/2015 Vitamin B12 388 pg/mL 180-914 14 Folic Acid (Folate) 12.72 ng/mL >3.99 15 Jennifer (Antinuclear Antibodies) Negative Negative 16 Protein Electrophoresis 10/18/2015 Total Protein(Pep) 7.7 g/dL 6.3 - 7.9 Albumin 3.4 g/dL 3.4-4.7 Alpha-1 Globulin 0.3 g/dL 0.1-0.3 Alpha-2 Globulin 1.1 g/dL 0.6-1.0 Beta Globulin 1.0 g/dL 0.7-1.2 Gamma Globulin 1.9 g/dL 0.6-1.6 Albumin/Globulin Ratio 0.81 M Reilly 1.7 g/dL Impression See Comment 17 Immunofixation See Comment 18 1 No informative autoantibodies were detected in this evaluation. However, a negative result does not exclude neurological autoimmunity with or without associated neoplasia. 2 CRMP-5 Titers lower than 1:240 may be detectable by recombinant CRMP-5 western blot analysis, available by request on stored serum and recommended in cases of chorea, vision loss, cranial neuropathy and myelopathy. Extramural clients contact [facility] at to add-on CRMP-5-IgG Western Blot, Serum. Intramural Clients, please call the Neuroimmunology Lab at [phone]. 3 Test Performed by: [place] [address] Hand Spinner: Brian Castanon II, M.D., Ph.D. 4 FINAL DIAGNOSIS: Specimen Source: Bone marrow Flow cytometry immunophenotypic analysis: Involved by a plasma cell neoplasm. Interpretative data: Blasts: 2% of gated events Lymphocytes: 8% of gated events B-cells: 12% of lymphocytes; kappa:lambda within normal limits T-cells/NK cells: No aberrant population detected. Plasma cells: 2% of gated events, kappa-restricted Markers tested: CD3, CD10, CD16, CD19, CD34, CD45, kappa surface light chains, lambda surface light chains, 7-AAD, CD38, CD138, cytoplasmic kappa light chains, cytoplasmic lambda light chains. Quality Assessment: Acceptable Viability: Acceptable Viable lymphocytes (7-AAD): 96% Specimen received within validated guidelines. A Carter-Giemsa stained slide prepared from the flow cytometry specimen was examined for quality purposes. Electronically signed by: Gloria Crow MD Technical component performed by: [place] [address] Hand Spinner: Brian Castanon II, MD, PhD. 5 SEE RESULT BELOW Name: EMMANUELLE GARCES : [address]: Irene Schneider MD Acct: [id number] Unit: [id number] AGE: 55 Location: [facility] Re11/11/15 SEX: F Status: REG REF SPEC: [id number] WILMER: 11/11/15-[address]: Irene Schneider MD REQ: [id number] RECD: 11/11/15 STATUS: SOUT _ ORDERED: IRON STAIN, Decal, CD138 STAIN, LEVEL IV/2 FINAL DIAGNOSIS 1. Bone marrow, right posterior iliac crest, aspirate: -- Involvement by monoclonal plasma cell population (up to 32% of nucleated cell population). See comment. -- Normocellular bone marrow (for age, minus plasma cell population) with mixed trilinear hematopoiesis. -- Iron present on iron stain with appropriate controls. 2. Bone marrow, right posterior iliac crest, core biopsy: -- Involvement by monoclonal plasma cell population (up to 32% of nucleated cell population). See comment. -- Normocellular bone marrow (for age, minus plasma cell population) with mixed trilinear hematopoiesis. Comment: Markedly increased plasma cells with abnormal cytology features are noted on aspirates as well as clot and core sections. This finding is confirmed on CD138 immunohistochemical stain. Flow cytometric evaluation demonstrates a monoclonal kappa restricted plasma cell population supporting the above rendered diagnosis. Correlation with other clinical criteria for plasma cell myeloma are recommended. Dr. Crow has reviewed this case and concurs. This case was discussed with Dr. Morataya on 11/16/15 at approximately 2 PM. CONTINUED ON NEXT PAGE * ML=Testing performed at Main Lab DEPARTMENT OF PATHOLOGY, [address] [place] [address] Wilver Carrillo M.D. Director RICH # [id number] RUN DATE: 11/16/15 [facility] LAB LIVE PAGE 2 Patient: EMMANUELLE GARCES [id number] (Continued) SPECIAL STUDIES (Continued) SPECIAL STUDIES Flow cytometry has been performed at [place], [place]. The testing reveals: FINAL DIAGNOSIS: Specimen Source: Bone marrow Flow cytometry immunophenotypic analysis: Involved by a plasma cell neoplasm. Interpretative data: Blasts: 2% of gated events Lymphocytes: 8% of gated events B-cells: 12% of lymphocytes; kappa:lambda within normal limits T-cells/NK cells: No aberrant population detected. Plasma cells: 2% of gated events, kappa-restricted Markers tested: CD3, CD10, CD16, CD19, CD34, CD45, kappa surface light chains , lambda surface light chains, 7-AAD, CD38, CD138, cytoplasmic kappa light chains, cytoplasmic lambda light chains. Quality Assessment: Acceptable Viability: Acceptable Viable lymphocytes (7-AAD): 96% Specimen received within validated guidelines. A Carter-Giemsa stained slide prepared from the flow cytometry specimen was examined for quality purposes. Electronically signed by: Gloria Crow MD Technical component performed by: [address] [address] Hand Spinner: Brian Castanon II, MD, PhD. CONTINUED ON NEXT PAGE * ML=Testing performed at Main Lab DEPARTMENT OF PATHOLOGY, [address] [place] [address] Wilver Carrillo M.D. Director RICH # [id number] RUN DATE: 11/16/15 [facility] LAB LIVE PAGE 3 Patient: EMMANUELLE GARCES [id number] (Continued) PRE-OPERATIVE DIAGNOSIS (Continued) PRE-OPERATIVE DIAGNOSIS D47.2 GROSS DESCRIPTION 1. The specimen is received in formalin labeled, RPIC, and consists of a 2.4 x 1.9 x 0.4 cm aggregate of red-brown blood clot, which is submitted entirely in one cassette. 2. The specimen is received in formalin labeled, RPIC, and consists of a 1.2 x 0.2 cm partially disrupted alvarado bone core, which is submitted entirely in one cassette following decalcification. MICROSCOPIC DESCRIPTION The concurrent CBC with electronic differentials available for review with results as follows WBC 9 RBC 4.47 hemoglobin 13.7 hematocrit 41 MCV 92 MCH 31 MCHC 34 RDW 13% platelet count 244,000 mean platelet volume of 9 absolute neutrophils 6.7 absolute lymphocytes 1.6 absolute monocyte 0.5 absolute eos 0.2 absolute basophil was 0.1. Red cell morphology is unremarkable. The aspirate smears and touch imprint slides are amply cellular and demonstrate scattered spicules and hematopoietic elements demonstrating mixed trilinear hematopoiesis. An: E ratio is 4-6: 1 with unremarkable myeloid and erythroid maturation. Plasma cells are markedly increased up to 32% of nucleated cells. Plasma cells have predominantly normal morphologic features with scattered larger flame cells and a few binucleate cells present. No blastoid elements are seen. Megakaryocytes are present in normal numbers and morphology. No increase lymphoid elements are seen. Clot sections demonstrate 70% cellularity with mixed trilinear hematopoiesis. Plasma cells are markedly increased at least 30% of nucleated cells with otherwise unremarkable appearing myeloid and erythroid maturation. Megakaryocytes are present in normal numbers and morphology. No lymphoid aggregates identified. An iron stain performed with appropriate controls demonstrates iron present (2-3 plus). An immunohistochemical stain for CD138 demonstrates significantly increased plasma cells (up to 30% of overall nucleated cells with plasma cells arranged in numerous clusters. The core biopsy demonstrates 65% cellularity with mixed trilinear hematopoiesis. Plasma cells are increased up to 30% of nucleated cells. Myeloid and erythroid maturation are otherwise unremarkable. Megakaryocytes are present in normal numbers and morphology. No increase blasts or lymphoid aggregates are seen. Mild reactive bony changes are noted. CONTINUED ON NEXT PAGE * ML=Testing performed at Main Lab DEPARTMENT OF PATHOLOGY, [address] [place] [address] Wilver Carrillo M.D. Director RICH # [id number] RUN DATE: 11/16/15 [facility] LAB LIVE PAGE 4 Patient: EMMANUELLE GARCES [id number] (Continued) MICROSCOPIC DESCRIPTION (Continued) Signed (signature on file) Wilver Carrillo MD [id number] END OF REPORT * ML=Testing performed at Main Lab DEPARTMENT OF PATHOLOGY, [address] [place] [address] Wilver Carrillo M.D. Director [facility] # [id number] 6 RESULT: Right posterior iliac crest 7 RESULT: monoclonal gammopathy 8 Locus and probes [Strategy;#Nuclei;Class] 1p36.3(TP73),1q21(CKS1B) [COPY#;50;LDT] 3CEN(D3Z1),7CEN(D7Z1) [COPY#;50;ASR] 4p16.3(FGFR3),14q32(IGH) [DFISH;50;ASR] 8q24(5'MYC,3'MYC) [BAP;50;ASR] 9CEN(D9Z1),15CEN(D15Z4) [COPY#;50;ASR] 11q13(CCND1-XT),14q32(IGH-XT) [DFISH;50;ASR] 13q14(RB1),13q34(LAMP1) [COPY#;50;ASR] 14q32(3'IGH,5'IGH) [BAP;50;LDT] 17p13.1(TP53),17CEN(D17Z1) [COPY#;50;ASR] Probe strategies include: DFISH=dual color, double fusion; BAP=break-apart probe; COPY#=region gain and loss. 9 Abnormality Name Result # Abn Total Cells 14q32(IGH sep) Abnormal 46 50 t(11;14) CCND1-XT/IGH-XT Normal 0 50 fusion +11(CCND1-XTx3) Normal 0 50 -17p13.1(TP53x1,B09M5f3) Abnormal 42 50 -17(TP53,D17Z1)x1 Normal 8 50 -13q14(RB1x1,SWDP6b2) Normal 0 50 -13(RB1,LAMP1)x1 Abnormal 49 50 +9CEN(D9Z1x3) Normal 0 50 +15CEN(V24B4n4) Normal 0 50 +7CEN(D7Z1x3) Normal 0 50 +3CEN(D3Z1x3) Normal 0 50 8q24.1(MYC sep) Normal 0 50 +1q21(TP73x2,KEW8Tp1) Normal 0 50 +1(TP73,CKS1B)x3 Normal 0 50 t(4;14) FGFR3/IGH fusion Abnormal 39 50 10 nuc veronica(FGFR3,IGH)x3(FGFR3 con IGHx2),(RB1,LAMP1)x1,(TP53x1,Z46O9n7) 11 The result is abnormal and 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 A TP53 deletion is associated with an unfavorable prognosis in multiple myeloma, irrespective of any other abnormalities detected (Dangelo et al., Blood 101:2217-7798, 2003). The prognostic significance for these abnormalities in MGUS, amyloidosis, or smoldering multiple myeloma is unknown. PDF Report available at: [email or web address] 12 Applicable to Analyte Specific Reagent (ASR) and Laboratory Developed Tests (LDT). This test was developed and its performance characteristics determined by [facility]. It has not been cleared or approved by the U.S. Food and Drug Administration. This FISH test does not rule out other chromosome abnormalities. 13 RESULT: Wilver Washington, Ph.D. Test Performed by: [place] [address] Hand Spinner: Brian Castanon II, M.D., Ph.D. 14 Normal Range 180 to 914 Indeterminate Range 145 to 180 Deficient Range <145 15 with immunofixation Copy Result to: WILFREDO SCANLON ([id number]) 16 with immunofixation Copy Result to: WILFREDO SCANOLN ([id number]) 17 M-spike in gamma fraction. See Immunofixation. Test Performed by: [place] [address] Hand Spinner: Brian Castanon II, M.D., Ph.D. 18 Monoclonal IgG kappa. C/W MGUS, early myeloma, amyloidosis, etc. Suggest 24-hr urine Monoclonal Protein Studies. Suggest Immunoglobulin Free Light Chains, Serum Test Performed by: [place] [address] Hand Spinner: Brian Castanon II, M.D., Ph.D. Procedures Date CPT Code Description Status 05/20/201830698 Inject/Drain Joint/Bursa Major W/O US Completed 12/20/2015 34960 Nerve Conduction 13+ Studies Completed 09/24/201377122 Inject Tendon Sheath Or Ligament Aponeurosis Eg Plantar Completed Fascia 09/24/201397300 Inject Tendon Sheath Or Ligament Aponeurosis Eg Plantar Completed Fascia 09/24/201321282 Inject Tendon Sheath Or Ligament Aponeurosis Eg Plantar Completed Fascia Encounters Type Date Location Provider CPT E/M Dx Office Visit 05/20/2018 9:00a [facility] [place] [address] M17.0 C.MKarlie M17.12 Office Visit 02/23/2016 11:45a [facility] OrlandoSofia Janyclara, [address] G62.9 [facility] G56.02 G56.01 Office Visit 10/18/2015 10:00a [facility] OrlandoSofia Teague, [address] G62.9 [facility] R20.2 R26.81 M54.16 Office Visit 09/24/2013 10:00a [facility] Angely Garcia, [address] 727.03 Of Franco Babb 727.42 727.49 Office Visit 06/30/2012 11:00a [facility] Bear Martin, [address] 719.45 Of Curtis Babb 721.3 724.3 Office Visit 04/09/2012 10:00a [facility] M.D. 86031 724.3 Adrienne.Sumeet 724.2 Office Visit 03/12/2012 1:15p [facility], [address] 715.95 Adrienne.Sumeet Babb Office Visit 02/27/2012 9:00a [facility] [address] 726.5 Adrienne.Sumeet Babb 733.43 Plan of Care Future Appointment(s):09/16/2018 9:15 am - Rudolph Dominguez MD at [facility]06/02/2018 - Rudolph Dominguez, MDM19.012 Primary osteoarthritis, left shoulderNew Therapy:Physical TherapyFollow up:Follow up: 3 months prn
--- OUTSIDE RECORDS SUMMARY | 2018-06-30 12:26 | XMS REPORT ---
:1960 External Reference #:[id number] Author Organization [facility] Address [address] [place] [address] [place] [address] Phone [phone] Care Team Providers Name Role Phone Wilfredo Scanlon MD Primary Care Physician Unavailable Payers Type Date Identification Numbers Payment Provider Subscriber Commercial Policy Number: [id number] [employer] Emmanuelle Garces Group Number: [id number] [id number] Group Name: [place] [address] PayID: [id number] Problems Date Description Provider Status Onset: 10/18/2015 [...] Date Description Comments Lives With Alone 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 Extramural clients contact [facility] Inquiry at to add-on CRMP-5-IgG Western Blot, Serum. Intramural Clients, please call the Neuroimmunology Lab at [phone]. 3 Test Performed by: [place] [address] Publishing Systems Analyst: Brian Castanon II, M.D., Ph.D. 4 FINAL [...] Gloria Crow MD Technical component performed by: [place] [address] Publishing Systems Analyst: Brian Castanon II, MD, PhD. 5 SEE RESULT BELOW Name: EMMANUELLE GARCES : [address]: Irene Schneider MD Acct: [id number] Unit: [id number] AGE: 55 Location: [facility] Re11/11/15 SEX: F Status: REG REF SPEC: [id number] WILMER: 11/11/15-[address]: Irene Schneider MD REQ: [id number] RECD: 11/11/15 STATUS: SOUT _ ORDERED: IRON [...] concurs. This case was discussed with Dr. Moraatya on 11/16/15 at approximately 2 PM. CONTINUED ON NEXT PAGE * ML=Testing performed at Main Lab DEPARTMENT OF PATHOLOGY, [address] [place] [address] Wilver Carrillo M.D. Director RICH # [id number] RUN DATE: 11/16/15 [facility] LAB LIVE PAGE 2 Patient: EMMANUELLE GARCES [id number] (Continued) SPECIAL STUDIES (Continued) SPECIAL STUDIES Flow cytometry has been performed at [place], [place]. The testing reveals: FINAL DIAGNOSIS: Specimen [...] Gloria Crow MD Technical component performed by: [address] [address] Publishing Systems Analyst: Brian Castanon II, MD, PhD. CONTINUED ON NEXT PAGE * ML=Testing performed at Main Lab DEPARTMENT OF PATHOLOGY, [address] [place] [address] Wilver Carrillo M.D. Director RICH # [id number] RUN DATE: 11/16/15 [facility] LAB LIVE PAGE 3 Patient: EMMANUELLE GARCES [id number] (Continued) PRE-OPERATIVE DIAGNOSIS (Continued) PRE-OPERATIVE DIAGNOSIS D47.2 [...] performed at Main Lab DEPARTMENT OF PATHOLOGY, [address] [place] [address] Wilver Carrillo M.D. Director RICH # [id number] RUN DATE: 11/16/15 [facility] LAB LIVE PAGE 4 Patient: EMMANUELLE GARCES [id number] (Continued) MICROSCOPIC DESCRIPTION (Continued) Signed (signature on file) Wilver Carrillo MD 1458 END OF REPORT * ML=Testing performed at Main Lab DEPARTMENT OF PATHOLOGY, [address] [place] [address] Wilver Carrillo M.D. 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 A TP53 deletion is associated with an unfavorable prognosis in multiple myeloma, irrespective of any other abnormalities detected (Dangelo et al., Blood 101:3202-1092, 2003). The prognostic significance for these abnormalities in MGUS, amyloidosis, or smoldering multiple myeloma is unknown. PDF Report available at: [email or web address] 12 Applicable to Analyte Specific Reagent (ASR) and Laboratory Developed Tests (LDT). This test was developed and its performance characteristics determined by [facility]. It has not been cleared or approved by the U.S. Food and Drug Administration. This FISH test does not rule out other chromosome abnormalities. 13 RESULT: Wilver Washingtno, Ph.D. Test Performed by: [place] [address] Publishing Systems Analyst: Brian Castanon II, M.D., Ph.D. 14 Normal Range 180 to 914 Indeterminate Range 145 to 180 Deficient Range <145 15 with immunofixation Copy Result to: WILFREDO SCANLON ([id number]) 16 with immunofixation Copy Result to: WILFREDO SCANLON ([id number]) 17 M-spike in gamma fraction. See Immunofixation. Test Performed by: [place] [address] Publishing Systems Analyst: Brian Castanon II, M.D., Ph.D. 18 Monoclonal IgG kappa. C/W MGUS, early myeloma, amyloidosis, etc. Suggest 24-hr urine Monoclonal Protein Studies. Suggest Immunoglobulin Free Light Chains, Serum Test Performed by: [place] [address] Publishing Systems Analyst: Brian Castanon II, M.D., Ph.D. Procedures Date CPT Code Description Status 05/20/201806604 Inject/Drain Joint/Bursa Major W/O US Completed 12/20/2015 44257 Nerve Conduction 13+ Studies Completed 09/24/201364575 Inject Tendon Sheath Or Ligament Aponeurosis Eg Plantar Completed Fascia 09/24/201397180 Inject Tendon Sheath Or Ligament Aponeurosis Eg Plantar Completed Fascia 09/24/201324821 Inject Tendon Sheath Or Ligament Aponeurosis Eg Plantar Completed Fascia Encounters Type Date Location Provider CPT E/M Dx Office Visit 05/20/2018 9:00a [facility] [place] [address] M17.0 C.MKarlie M17.12 Office Visit 02/23/2016 11:45a [facility] OrlandoSofia Janyclara, [address] G62.9 Services Of [facility] G56.02 G56.01 Office Visit 10/18/2015 10:00a [facility] OrlandoSofia Teague, [address] G62.9 [facility] R20.2 R26.81 M54.16 Office Visit 09/24/2013 10:00a [facility] Angely Garcia, [address] 727.03 Of Franco Babb 727.42 727.49 Office Visit 06/30/2012 11:00a [facility] Bear Martin, [address] 719.45 Of Curtis Babb 721.3 724.3 Office Visit 04/09/2012 10:00a [facility] J[facility] Jacobs M.D. 875[address] 724.3 Adrienne.Sumeet 724.2 Office Visit 03/12/2012 1:15p [facility] Jm Jacosb, [address] 715.95 Adrienne.Sumeet Babb Office Visit 02/27/2012 9:00a [facility] J[facility] Jacobs [address]302 726.5 Adrienne.Sumeet Babb 733.43 Plan of Care Future Appointment(s):09/16/2018 9:15 am - Rudolph Dominguez MD at [facility]06/02/2018 - Rudolph Dominguez, MDM19.012 Primary osteoarthritis, left shoulderNew Therapy:Physical TherapyFollow up:Follow up: 3 months prn
[2018-06-30 12:30] VITALS: BP 153/105
[2018-06-30] MEDS ORDERED: Aspirin 81 mg CHEW TAB* 81 MG TAB.CHEW PO ONE (12:59)
--- NOTE | 2018-06-30 13:05 | UC ---
Palpitation/Dysrhythmia HP - HPI Summary HPI Summary: 58-year-old woman coming in to clinic today with palpitations and a cough. Last night the patient had some onset of palpitations a cough and also some chest pain. No chest pain now. She does feel short of breath. Activity makes it worse. She did not pass out. - History of Current Complaint Chief Complaint: UCRespiratory Stated Complaint: CHEST TIGHTNESS Time Seen by Provider: 06/30/18 12:51 Hx Last Menstrual Period: Sep 2012 (currently going through menopause) Pain Intensity: 5 - Allergy/Home Medications Allergies/Adverse Reactions: Allergies Allergy/AdvReac Type Severity Reaction Status Date / Time azathioprine Allergy Severe Anaphylatic Verified 06/30/18 12:30 Shock celecoxib [From Celebrex] Allergy Severe Anaphylatic Verified 06/30/18 12:30 Shock Penicillins Allergy Severe Anaphylatic Verified 06/30/18 12:30 Shock Sulfa (Sulfonamide Allergy Severe Anaphylatic Verified 06/30/18 12:30 Antibiotics) Shock infliximab [From Remicade] Allergy Unknown Unknown Verified 06/30/18 12:30 Reaction Details ENVIRONMENTAL Allergy Runny Nose Uncoded 06/30/18 12:30 Home Medications: Home Medications Ca/D3/Mag Ox/Zinc/Customs Import Specialist/Josh/Bor [Calcium 600-D3 Plus Caplet] 1 each PO 06/30/18 [ History] Immun Glob G(IgG)/Gly/Iga 0-50 [Gammaplex] 5 gm IV 06/30/18 [History] Irbesartan 300 mg PO 06/30/18 [History] Ondansetron HCl [Zofran 4 MG TAB] 4 mg PO BID 06/30/18 [History Confirmed ] PMH/Surg Hx/FS Hx/Imm Hx Cardiovascular History: Hypertension Respiratory History: Asthma - Surgical History Surgical History: Yes Surgery Procedure, Year, and Place: 1995 RESECTION OF COLON(LARGE PORTION OF LARGE INTESTINES, [place]. 2005 EXCISION OF VULVAR LESION RIGHT SIDE, [facility] [place]. 2011 DILATION CURETTAGE, HYSTEROSCOPY, POLYPECTOMY WITH CERVICAL BIOPSY, [facility] [place]. 2013 BILATERAL HIP REPLACEMENT, [place], [place]. 2014 LUMBAR DISCECTOMY, [place], [place] - Family History Known Family History: Positive: Hypertension Negative: Diabetes - Social History Alcohol Use: Weekly Alcohol Amount: 3-5 drinks Substance Use Type: None Smoking Status (MU): Former Smoker Type: Cigarettes Amount Used/How Often: 3 PPD Length of Time of Smoking/Using Tobacco: 13 YEARS Have You Smoked in the Last Year: No When Did the Patient Quit Smoking/Using Tobacco: 1985 Review of Systems Constitutional: Negative Skin: Negative Eyes: Negative ENT: Negative Respiratory: Shortness Of Breath Cardiovascular: Palpitations, Chest Pain Gastrointestinal: Negative Motor: Negative Neurovascular: Negative Musculoskeletal: Edema Neurological: Negative Psychological: Negative Is Patient Immunocompromised?: No All Other Systems Reviewed And Are Negative: Yes Physical Exam Triage Information Reviewed: Yes Appearance: Well-Appearing, No Pain Distress, Well-Nourished Vital Signs: Initial Vital Signs Temp 0 F 06/30/18 12:26 Pulse 71 06/30/18 12:26 Resp 22 06/30/18 12:26 BP 153/105 06/30/18 12:26 Pulse Ox 98 06/30/18 12:26 Vital Signs Reviewed: Yes Eye Exam: Normal Eyes: Positive: Conjunctiva Clear Neck exam: Normal Neck: Positive: Supple Respiratory: Positive: Lungs clear, Normal breath sounds, No respiratory distress Cardiovascular: Positive: Tachycardia - Irregularly irregular Musculoskeletal: Positive: Edema @ - Bilateral pedal edema. Neurological Exam: Normal Neurological: Positive: Alert Psychological Exam: Normal Psychological: Positive: Age Appropriate Behavior Skin Exam: Normal Diagnostics - EKG Cardiac Rate: Tachycardia - EKG time is 12:46. Tachycardic 147 bpm rapid atrial fibrillation Cardiac Rhythm: AFib: New ST Segment: Normal Palpitations Course/Dx - Course Course Of Treatment: Patient has no chest pain now. She was given aspirin 324 mg by mouth in clinic. She is being transported by ambulance to the emergency department. - Differential Dx/Diagnosis Provider Diagnoses: New onset rapid atrial fibrillation. chest pain Discharge - Sign-Out/Discharge Documenting (check all that apply): Patient Departure All imaging exams completed and their final reports reviewed: No Studies - Discharge Plan Condition: Stable Disposition: TRANS HIGHER LVL OF CARE FAC Referrals: Wilfredo Greene MD [Primary Care Provider] - - Billing Disposition and Condition Condition: STABLE Disposition: Trans Higher Lvl of Care Fac
== END 2018-06-30 13:20 | disposition short-term general hospital (02) ==
LOC: UCEAST 12:20
DX: I48.91 Unspecified atrial fibrillation (principal); I10 Essential (primary) hypertension; J45.909 Unspecified asthma, uncomplicated; R00.0 Tachycardia, unspecified; Z90.49 Acquired absence of other specified parts of digestive tract; Z87.891 Personal history of nicotine dependence; Z96.643 Presence of artificial hip joint, bilateral; Z88.0 Allergy status to penicillin; Z88.1 Allergy status to other antibiotic agents; Z88.8 Allergy status to other drugs, medicaments and biological substances
CPT/HCPCS: 93005; 99213; A9270-GY; G0463

== ENCOUNTER 2018-06-30 13:42 | Observation (INO) | payer OTHER ==
[2018-06-30 14:46] LABS: ABS Basophils 0.1 10^3/ul (0-0.2); ABS Eosinophils 0.1 10^3/ul (0-0.6); ABS Lymphocytes 2.3 10^3/ul (1.0-4.8); ABS Monocytes 0.7 10^3/ul (0-0.8); ABS Neutrophils 7.1 10^3/ul (1.5-7.7); ABS Nucleated RBC 0 10^3/ul; Eosinophil % 0.8 % (0-6); Hematocrit 40 % (35-47); Hemoglobin 13.3 g/dl (12.0-16.0); Lymphocyte % 22.4 % (25-47); Mean Corpuscular HGB Conc 33 g/dl (31-36); Mean Corpuscular Hemoglobin 31 pg (27-31); Mean Corpuscular Volume 92 fL (80-97); Mean Platelet Volume 8.2 um3 (7.4-10.4); Nucleated Red Blood Cells % 0.1; Platelet Count 340 10^3/ul (150-450); Red Blood Count 4.36 10^6/ul (4.00-5.40); Red Cell Distribution Width 13 % (10.5-15); White Blood Count 10.3 10^3/ul (3.5-10.8)
[2018-06-30 15:03] LABS: EGFR Non-African American 59.5 (>60)
[2018-06-30] MEDS ORDERED: Magnesium Sulfate 2 GM IV* 2 GM/50 ML BAG IVPB ONE (15:23)
--- NOTE | 2018-06-30 15:59 | RAD ---
Indication: Palpitations. Atrial fibrillation. COPD. Comparison: January 03, 2018 Technique: Upright AP 1426 hours Report: Elevated lung volumes and both diffuse mild prominence of the interstitial markings and patchy rarefaction of the mid to upper lung zone interstitial markings. Unchanged few bands of linear subsegmental atelectasis at the LEFT lower lung zone. The lungs and pleural spaces are otherwise clear. Negative for pneumothorax. The heart, pulmonary vasculature, and mediastinal contours are unremarkable. IMPRESSION: #. Stigmata of obstructive lung disease. No acute pulmonary or cardiac process evident.
[2018-06-30 16:44] LABS: Urine Appearance Cloudy; Urine Blood 1+ (Negative); Urine Color Yellow; Urine Ketones Negative (Negative); Urine Protein Negative (Negative); Urine Red Blood Cell 1+(3-5/hpf) (Absent); Urine Specific Gravity 1.019 (1.010-1.030); Urine Urobilinogen Negative (Negative); Urine White Blood Cell 2+(11-20/hpf) (Absent)
[2018-06-30] MEDS ORDERED: Magnesium Hydroxide LIQ* 30 ML UDC PO PRN (17:47)
[2018-06-30] MEDS ORDERED: Al Hydrox/Mg Hydrox/Simet LIQ* 30 ML UDC PO PRN (17:47)
[2018-06-30] MEDS ORDERED: Albuterol HFA INHALER* 8 gm MDI INH PRN (17:50)
[2018-06-30] MEDS ORDERED: Enoxaparin(*) 40 MG/0.4 ML SYR SUBCUT SCH (18:00)
--- NOTE | 2018-06-30 19:03 | ED ---
HPI Cardiac - HPI Summary HPI Summary: Patient is a 58 y/o F BIBA from [facility] w/ c/o chest palpitations onsetting last night. She describes chest palpitations as a "flutter" and notes that her chest felt "full". She also reports intermittent chest tightness, denies chest pain. This morning, she states that she was still experiencing palpitations and notes that any exertion made her feel fatigued. She also reports lightheadedness/ dizziness, nausea. EMS reports pulse of 200, patient was given 150 cc NS. In room, pulse is 80. 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 PMHx of Crohn's disease, multiple myeloma and PSHx of abdominal resection. She states she is not on blood thinners. Patient reports slight bruise at RLQ. Patient denies fever, chills, SOMMERS, ear pain, sore throat, blurred vision, double vision, neck pain, SOB, ABD pain, back pain, dysuria, hematuria, blood in the stool, edema, rashes, anxiety and depression. On triage, pain is denied, nothing is noted to aggravate/alleviate Sx. Home medications and allergies are reviewed. - History of Current Complaint Chief Complaint: EDDysrhythmPalp Stated Complaint: NEW ONSET A FIB Hx Obtained From: Patient Hx Last Menstrual Period: Sep 2012 (currently going through menopause) Onset/Duration: Started Hours Ago - this morning, dizziness, fatigue, nasuea onset, Started Days Ago - palpitations onset last night Timing: Constant Current Severity: None - 0/10 Pain Intensity: 0 Pain Scale Used: 0-10 Numeric Character: Fluttering, Tightness, Other: - chest felt full Aggravating Factor(s): Nothing Alleviating Factor(s): Nothing Associated Signs and Symptoms: Positive: Dizziness, Lightheadedness, Nausea, Other: - ear pain, sore throat, neck pain, dysuria, hematuria, blood in the stool, edema, and rashes. Negative: Chest Pain, Vision Changes, Anxiety, Headaches, Shortness of Breath, Swelling, Fever, Chills, Back Pain, Abdominal Pain - Allergy/Home Medications Allergies/Adverse Reactions: Allergies Allergy/AdvReac Type Severity Reaction Status Date / Time azathioprine Allergy Severe Anaphylatic Verified 06/30/18 12:30 Shock celecoxib [From Celebrex] Allergy Severe Anaphylatic Verified 06/30/18 12:30 Shock Penicillins Allergy Severe Anaphylatic Verified 06/30/18 12:30 Shock Sulfa (Sulfonamide Allergy Severe Anaphylatic Verified 06/30/18 12:30 Antibiotics) Shock infliximab [From Remicade] Allergy Unknown Unknown Verified 06/30/18 12:30 Reaction Details gluten Allergy GI Upset Verified 06/30/18 16:06 ENVIRONMENTAL Allergy Runny Nose Uncoded 06/30/18 12:30 PMH/Surg Hx/FS Hx/Imm Hx Endocrine/Hematology History: Reports: 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 Denies: Hx Diabetes Cardiovascular History: Reports: Hx Hypertension - CONTROL WITH MEDS, Other Cardiovascular Problems/Disorders - DVT IN LEG 30 YEARS AGO Denies: Hx Pacemaker/ICD Respiratory History: Reports: Hx Asthma, Hx Chronic Obstructive Pulmonary Disease (COPD) - YES ?, Other Respiratory Problems/Disorders - RECENT URI - NO PROBLEMS NOW GI History: Reports: Hx Crohn's Disease, Hx Gastroesophageal Reflux Disease - ACID REFLUX - PRN MEDS History: Denies: Hx Dialysis, Hx Renal Disease Musculoskeletal History: Reports: Hx Arthritis - GENERALIZED, Hx Back Problems - chronic low back pain Denies: Hx Osteoporosis Sensory History: Reports: Hx Contacts or Glasses Denies: Hx Hearing Aid Opthamlomology History: Reports: Hx Contacts or Glasses Neurological History: Reports: Other Neuro Impairments/Disorders - BALANCE ISSUES DUE TO NEUROPATHY IN BILATERAL FEET Psychiatric History: Denies: Hx Panic Disorder - Cancer History Cancer Type, Location and Year: "SMOLDERING MULTIPLE MYELOMA" Hx Chemotherapy: No Hx Radiation Therapy: No - Surgical History Surgery Procedure, Year, and Place: 1996 RESECTION OF COLON(LARGE PORTION OF LARGE INTESTINES, [place]. 2006 EXCISION OF VULVAR LESION RIGHT SIDE, [facility] [place]. 2012 DILATION CURETTAGE, HYSTEROSCOPY, POLYPECTOMY WITH CERVICAL BIOPSY, [facility] [place]. 2013 BILATERAL HIP REPLACEMENT, [place], [place]. 2014 LUMBAR DISCECTOMY, [place], [place] Hx Anesthesia Reactions: Yes - WOKE DURING ONE OF HIP SURGERY RELATED TO "MEDICATION PUSH" - Immunization History Date of Tetanus Vaccine: utd Date of Influenza Vaccine: utd Infectious Disease History: No Infectious Disease History: Reports: Hx Shingles Denies: Traveled Outside the [place] in Last 30 Days - Family History Known Family History: Positive: Hypertension Negative: Diabetes - Social History Alcohol Use: Occasionally Alcohol Amount: 3-5 drinks Hx Substance Use: No Substance Use Type: Reports: None Hx Tobacco Use: No Smoking Status (MU): Former Smoker Type: Cigarettes Amount Used/How Often: 3 PPD Length of Time of Smoking/Using Tobacco: 13 YEARS Have You Smoked in the Last Year: No Review of Systems Positive: Fatigue. Negative: Fever, Chills Positive: Other - NEGATIVE: double vision . Negative: Blurred Vision Negative: Sore Throat, Ear Ache Positive: Palpitations. Negative: Chest Pain Negative: Shortness Of Breath Positive: Nausea. Negative: Abdominal Pain Positive: other - NEGATIVE: blood in stool . Negative: dysuria, hematuria Positive: Other - NEGATIVE: back/neck pain . Negative: Edema Positive: Bruising - RLQ bruise . Negative: Rash Neurological: Other - POSITIVE: dizziness/light-headedness Negative: Headache Negative: Anxious, Depressed All Other Systems Reviewed And Are Negative: No Physical Exam - Summary Physical Exam Summary: Appearance: Alert, conversive, nontoxic appearing; obese Skin: Warm, dry, no mottling, no rashes, no contusions HEENT: EOMI, PERRL, dry mucous membranes Neck: No masses on the neck, supple Respiratory: Clear to auscultation, breath sounds present, no rales, no rhonchi , no wheezes Cardiovascular: RRR, pulses are symmetrical in both lower and upper extremities Abdomen: Soft, RLQ tenderness, no obvious abscess or cellulitic area Bowel Sounds: Present Musculoskeletal: No CVA tenderness, no obvious deformity, moving all extremities in a grossly normal manner Neurological: A&Ox3, CN II-XII Intact, moving all extremities symmetrically Psychiatric: Normal affect and mood Triage Information Reviewed: Yes Vital Signs On Initial Exam: Initial Vitals Temp Pulse Resp BP Pulse Ox 97.5 F 89 16 95/53 98 06/30/18 14:03 06/30/18 14:03 06/30/18 14:03 06/30/18 14:03 06/30/18 14:03 Vital Signs Reviewed: Yes Diagnostics - Vital Signs Vital Signs Temp Pulse Resp BP Pulse Ox 06/30/18 15:00 80 15 97 06/30/18 14:12 89 27 136/92 95 06/30/18 14:03 97.5 F 89 16 95/53 98 - Laboratory Lab Results: Lab Results 06/30/18 06/30/18 06/30/18 Range/Units 14:32 14:32 14:32 WBC 10.3 (3.5-10.8) 10^3/ul RBC 4.36 (4.00-5.40) 10^6/ul Hgb 13.3 (12.0-16.0) g/dl Hct 40 (35-47) % MCV 92 (80-97) fL MCH 31 (27-31) pg MCHC 33 (31-36) g/dl RDW 13 (10.5-15) % Plt Count 340 (150-450) 10^3/ul MPV 8.2 (7.4-10.4) um3 Neut % (Auto) 69.0 (38-83) % Lymph % (Auto) 22.4 L (25-47) % Gonzales % (Auto) 6.9 (0-7) % Eos % (Auto) 0.8 (0-6) % Baso % (Auto) 0.9 (0-2) % Absolute Neuts (auto) 7.1 (1.5-7.7) 10^3/ul Absolute Lymphs (auto) 2.3 (1.0-4.8) 10^3/ul Absolute Monos (auto) 0.7 (0-0.8) 10^3/ul Absolute Eos (auto) 0.1 (0-0.6) 10^3/ul Absolute Basos (auto) 0.1 (0-0.2) 10^3/ul Absolute Nucleated RBC 0 10^3/ul Nucleated RBC % 0.1 Sodium 138 (135-145) mmol/L Potassium 3.8 (3.5-5.0) mmol/L Chloride 106 (101-111) mmol/L Carbon Dioxide 26 (22-32) mmol/L Anion Gap 6 (2-11) mmol/L BUN 17 (6-24) mg/dL Creatinine 0.96 H (0.51-0.95) mg/dL Est GFR ( Amer) 72.0 (>60) Est GFR (Non-Af Amer) 59.5 (>60) BUN/Creatinine Ratio 17.7 (8-20) Glucose 100 (70-100) mg/dL Calcium 9.0 (8.6-10.3) mg/dL Magnesium 1.5 L (1.9-2.7) mg/dL Total Bilirubin 0.30 (0.2-1.0) mg/dL AST 16 (13-39) U/L ALT 21 (7-52) U/L Alkaline Phosphatase 78 (34-104) U/L Troponin I 0.00 (<0.04) ng/mL B-Natriuretic Peptide 264 H ( - 100) pg/mL Total Protein 7.5 (6.4-8.9) g/dL Albumin 3.5 (3.2-5.2) g/dL Globulin 4.0 (2-4) g/dL Albumin/Globulin Ratio 0.9 L (1-3) Lipase 15 (11.0-82.0) U/L TSH 1.54 (0.34-5.60) mcIU/mL Result Diagrams: 06/30/18 14:32 06/30/18 14:32 Lab Statement: Any lab studies that have been ordered have been reviewed, and results considered in the medical decision making process. - Radiology CXR Radiology Interpretation Completed By: Radiologist Summary of Radiographic Findings: CXR showed #. Stigmata of obstructive lung disease. No acute pulmonary or cardiac process evident. This report was reviewed by ed physician. Re-Evaluation - Re-Evaluation First Eval Re-Evaluation Time: 14:15 Comment: Results of labs and tests were discussed with patient. Admission was discussed, patient is agreeable with this. Disposition - Course Course Of Treatment: Patient is a 58 y/o F BIBA from [facility] w/ c/o chest palpitations onsetting last night. She describes chest palpitations as a "flutter" and notes that her chest felt "full". She also reports intermittent chest tightness, denies chest pain. This morning, she states that she was still experiencing palpitations and notes that any exertion made her feel fatigued. She also reports lightheadedness/dizziness, nausea. EMS reports pulse of 200, patient was given 150 cc NS. In room, pulse is 80. 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 PMHx of Crohn's disease, multiple myeloma and PSHx of abdominal resection. She states she is not on blood thinners. Patient reports slight bruise at RLQ. Physical exam showed patient to be obese, dry mucous membranes, slight RLQ tenderness, no obvious abscess or cellulitic area. During ED course, patient was given magnesium sulfate 2 Gm IV. Labs showed TSH 1.54, lipase 15, BNP s64, trop 0, magnesium 1.5, creatinine 0.96. UA showed 1+ blood, 2+ leukocyte esterase, 2+ WBC, 1+ RBC, present squamous epith clells, 1+ bacteria, hyaline casts present. Tox screen was negative. CXR showed #. Stigmata of obstructive lung disease. No acute pulmonary or cardiac process evident. 1423 - Patient's case was discussed with Dr. Astorga, Dr. Astorga accepts for admission. Patient is agreeable with admission. Dx of tachycardia, dysrhythmia. - Diagnoses Provider Diagnoses: Tachycardia, Dysrhythmia Discharge - Sign-Out/Discharge Documenting (check all that apply): Patient Departure - admit All imaging exams completed and their final reports reviewed: Yes - Discharge Plan Condition: Stable Disposition: ADMITTED TO [facility] - Billing Disposition and Condition Condition: STABLE Disposition: Admitted to [facility] - Attestation Statements Document Initiated by Scribe: Yes Documenting Scribe: Richard Parker Provider For Whom Justice is Documenting (Include Credential): Fernanda Stein MD Scribe Attestation: Richard Becerra , scribed for Fernanda Stein MD on 06/30/18 at 2037. Scribe Documentation Reviewed: Yes Provider Attestation: The documentation as recorded by the kaushikibRichard paula accurately reflects the service I personally performed and the decisions made by wi, Fernanda Stein MD
[2018-06-30] MEDS ORDERED: Iodixanol* (CONTRAST) 320 MG/ML 100 ML SDV IV ONE (19:14)
[2018-06-30] MEDS ORDERED: Spironolactone TAB* 25 MG PO SCH (19:15)
[2018-06-30] MEDS ORDERED: amLODIPine TAB* 5 MG PO SCH (20:00)
[2018-06-30] MEDS ORDERED: Losartan TAB* 25 MG PO SCH (20:00)
--- NOTE | 2018-06-30 21:06 | RAD ---
EXAM: CT Angiography Chest With Intravenous Contrast EXAM DATE/TIME: 06/30/2018 6:26 PM CLINICAL HISTORY: 58 years old, female; Signs and symptoms; Shortness of breath; Additional info: New afib / SOB TECHNIQUE: Axial computed tomographic angiography images of the chest with intravenous contrast using CT angiography protocol. All CT scans at this facility use at least one of these dose optimization techniques: automated exposure control; mA and/or kV adjustment per patient size (includes targeted exams where dose is matched to clinical indication); or iterative reconstruction. Coronal and sagittal reformatted images were created and reviewed. MIP reconstructed images were created and reviewed. CONTRAST: 98 ml of visi 320 administered intravenously. COMPARISON: CHEST WO CT CHEST W/O 05/13/2017 11:53 AM FINDINGS: Pulmonary arteries: Pulmonary arteries are well opacified to the subsegmental branches. Dilated main pulmonary artery measuring 3.2 cm. No filling defects throughout the pulmonary artery tree. Aorta: Normal caliber aorta with no evidence of dissection or rupture. Lungs: No pulmonary nodules, masses, or consolidations. No bronchiectasis, peribronchial thickening, or luminal defects. Pleural space: Normal. No pneumothorax. No pleural effusion. Heart: Normal. No cardiomegaly. No pericardial effusion. Thyroid: No thyroid nodules. Bones/joints: The thoracic spine demonstrates mild degenerative changes at multiple levels. Moderate bilateral shoulder primary osteoarthritis. No fractures. No suspicious bone lesions. Soft tissues: Normal. Lymph nodes: Normal. No enlarged lymph nodes. IMPRESSION: 1. No pulmonary emboli. No additional findings to correlate with patient's symptomatology. 2. Findings which in the proper clinical setting can be seen in pulmonary hypertension. To contact [facility] with a general question: [facility] - [phone] For direct physician to physician contact: Physician Hotline - [phone] [facility] [place] ([facility] ID #[id number])
--- NOTE | 2018-06-30 21:31 | HP ---
CC: Dr. Greene; Dr. Morataya * HISTORY AND PHYSICAL: DATE OF ADMISSION: 06/30/18 PROVIDER: Tyesha Rodriguez NP PRIMARY CARE PROVIDER: Dr. Greene. ATTENDING PHYSICIAN WHILE IN THE HOSPITAL: Dr. Tomi Miller * (dictated by Tyesha Rodriguez NP). CHIEF COMPLAINT: 1. Shortness of breath. 2. Chest pain. 3. Palpitations. HISTORY OF PRESENT ILLNESS: Ms. Garces is a 58-year-old female with past medical history significant for multiple myeloma, Crohn's, arthritis, psoriasis , asthma, hypertension and obesity, who was transferred from Urgent Care for findings of new-onset atrial fibrillation. The patient reports that she has been feeling fluttering in her chest for approximately past 2 to 3 months. The patient reports that she gets a fluttering feeling in her chest and feels like her heart is pounding and she has to force a cough and then the fluttering in her chest subsides. She reports that last night this fluttering became worse and was associated with a sharp pain and tightness in her chest. She states that her heart was pounding last night and again she had to force herself to cough. She said that it did subside. She also reports that she has had low energy for the past 2 to 3 months. She reports that getting ready for work that she could only do a few things and then would have to sit down to get dressed. She would break out in a cold sweat and the fluttering in her chest would be intermittent. She reports "I feel like I have the flu, but no flu symptoms." She also reports increased shortness of breath with exertion, shortness of breath with climbing stairs. She denies any orthopnea or nocturnal dyspnea. She does report occasional chest pain with exertion, but it is associated with fluttering in the chest. She denies any recent fever or chills. She does report a mild decrease in appetite. She denies any productive cough, hemoptysis. She does report some chronic nausea, but denies any vomiting. Reports chronic diarrhea that is associated with her Crohn's, unchanged. Denies any abdominal pain. Denies any gross hematuria or dysuria. Denies any focal weakness or sensory loss. Denies any visual complaints. She denies any dysphagia. Denies any arthralgias or myalgias. Denies any psychosis or anxiety. Given her symptoms of palpitations and finding of atrial fibrillation on her EKG from Urgent Care, we were asked to see and evaluate her for admission. PAST MEDICAL HISTORY: Significant for: 1. Multiple myeloma. 2. Crohn's. 3. Arthritis. 4. Psoriasis. 5. Asthma. 6. Hypertension. 7. Obesity. PAST SURGICAL HISTORY: Significant for: 1. Intestinal resection. 2. Hip surgery. 3. Spinal surgery. HOME MEDICATIONS: Include: 1. Zofran 4 mg p.o. b.i.d. p.r.n. nausea. 2. Norvasc 10 mg p.o. at night. 3. Spironolactone 25 mg p.o. at night. 4. Omeprazole 40 mg p.o. daily. 5. Irbesartan 300 mg p.o. at night. 6. Advair 250/50 one puff daily. 7. Albuterol inhaler 1 puff q.4 hours as needed for shortness of breath. 8. Multivitamin 1 tablet p.o. daily. 9. Tylenol 650 mg p.o. q.8 hours as needed. 10. Calcium 600/D3 plus 1 tablet p.o. daily. 11. Vitamin B12 injections 1000 mcg IM monthly. 12. Ibuprofen 400 mg p.o. q.6 hours p.r.n. 13. IVIG 5 g IV monthly, next due 07/19/18. ALLERGIES TO MEDICATIONS: She is allergic to AZATHIOPRINE, CELECOXIB, PENICILLIN, SULFA, REMICADE, GLUTEN, and environmental allergies. FAMILY HISTORY: Father with a history of bypass surgery in his 80s, first MO at age 64. SOCIAL HISTORY: The patient reports she quit smoking in 1985. Prior to that, she smoked for approximately 11 years 2 to 3 packs per day. She does report occasional alcohol use. Denies any illicit drug use. She is single. Surrogate decision maker in the event she is unable to make her own decisions is , Saba Shannon, her phone number, cellphone is [phone], home phone is [phone]. The patient is a full code. PHYSICAL EXAMINATION GENERAL: At this time, Ms. Garces is a 58-year-old female, who appears well, sitting in the stretcher. She is not in any acute distress. VITAL SIGNS: Temperature 98.6; heart rate is 97, sinus rhythm on the monitor; respirations 20; O2 saturation on room air was 98%; blood pressure was 114/87. HEENT: Head is atraumatic, normocephalic. Eyes: EOMs are intact. Sclerae are anicteric and not pale. Oral mucosa appeared to be moist. NECK: Supple. LUNGS: Clear to auscultation bilaterally. No wheezes, rales, or rhonchi. CARDIAC: S1, S2, has a regular rate and rhythm. There are no murmurs, rubs, or gallops. ABDOMEN: Soft and nontender. Bowel sounds are present x4. EXTREMITIES: Pulses are +2 bilaterally. She is able to move all 4 extremities with 5/5 strength. NEUROLOGIC: She is awake, alert, and oriented x3. Tongue is midline. Speech is clear. There are no gross focal deficits. SKIN: Intact. DIAGNOSTIC STUDIES/LAB DATA: WBCs were 10.3, RBCs 4.36, hemoglobin 13.3, hematocrit was 40, platelet count was 340. Sodium 138, potassium 3.8, chloride 106, carbon dioxide was 26, anion gap was 6, BUN was 17, creatinine 0.96, magnesium was 1.5. BNP was 264. Troponin is 0.00 x2. TSH was 1.54. Urine: Color is yellow, appearance is cloudy, pH of 5, specific gravity 1.019, urine protein was negative and ketones were negative, urine blood was 1+, urine nitrites were negative, urine bilirubin was negative, urobilinogen was negative , urine leukocyte esterase was 2+, wbc's were 2+, rbc's 1+, urine squamous epithelial cells were present, bacteria was 1+, hyaline casts present. Urine toxicology was negative. EKG in the emergency room showed sinus rhythm at a rate of 89. EKG on 06/30/18 at 12:46 today showed atrial fibrillation at a rate of 147. She had a CTA of the chest, which is currently pending. Chest x-ray, radiologist's impression: Stigmata of obstructive lung disease. No acute pulmonary or cardiac process is evident. ASSESSMENT AND PLAN: Ms. Garces is a 58-year-old female, who presented to the emergency room with complaints of palpitations, chest pain, and shortness of breath. We were asked to see and evaluate her due to new-onset atrial fibrillation, her palpitations, chest pain, and shortness of breath. She will be admitted under observation for: 1. Chest pain/shortness of breath/palpitations. The patient was found to be in atrial fibrillation at Urgent Care today and was sent here for further evaluation. I will get a CTA of her chest that is currently pending. We will continue to trend her troponins. I will get an echocardiogram in the a.m. Her CHADS-VASc score is 2 giving her moderate risk of stroke with recommendation of starting anticoagulation. Her HAS-BLED risk is 1 giving her 3.4% chance of bleeding. She does have a history of Crohn's disease and does report occasional bleeding. She does also report vaginal bleeding with steroid use due to vaginal polyps. She also has a history of multiple myeloma and is currently on IVIG. She is requesting that we discuss anticoagulation with her retail sales merchandiser development. We will contact the retail sales merchandiser development in the a.m. The patient had a repeat EKG in the emergency room. She is currently in sinus rhythm at this time at a rate of 89. There are no ST or T-wave elevations. 2. Hypertension. She should continue on her irbesartan, spironolactone, and Norvasc that she takes at home. Her blood pressure is within normal limits at this time. 3. Multiple myeloma. She should continue her IVIG infusions as previously prescribed as an outpatient. Her next infusion is due on 07/19/18. 4. Asthma. She will be continued on her Advair and albuterol inhalers as needed for shortness of breath. 5. DVT prophylaxis: I will place her on Lovenox subcu 40 mg daily. 6. Code status: She is a full code. 7. Fluids, electrolytes, and nutrition: She will be placed on a heart-healthy diet. TIME SPENT: Time spent on this admission was 60 minutes, greater than half of that time was spent [id number] with the patient obtaining my history and physical, the other half of the time was spent going over my plan of care and implementing my plan of care. I have discussed this with my attending, Dr. Tomi Miller; he is in agreement with my plan. TYESHA RODRIGUEZ, PHOTOTYPESETTER OPERATOR [id number]/[facility] #: [id number] [facility] FARERI CHILDREN'S HOSPITALHector
[2018-07-01] MEDS: Acetaminophen TAB* 325 MG PO PRN ×2 (03:23→12:12)
[2018-07-01 06:18] LABS: ABS Basophils 0 10^3/ul (0-0.2); ABS Eosinophils 0.2 10^3/ul (0-0.6); ABS Lymphocytes 2.1 10^3/ul (1.0-4.8); ABS Monocytes 0.6 10^3/ul (0-0.8); ABS Nucleated RBC 0 10^3/ul; Eosinophil % 2.6 % (0-6); Hematocrit 36 % (35-47); Hemoglobin 11.9 g/dl (12.0-16.0); Lymphocyte % 26.6 % (25-47); Mean Corpuscular HGB Conc 33 g/dl (31-36); Mean Corpuscular Hemoglobin 30 pg (27-31); Mean Corpuscular Volume 92 fL (80-97); Mean Platelet Volume 8.6 um3 (7.4-10.4); Nucleated Red Blood Cells % 0; Platelet Count 280 10^3/ul (150-450); Red Blood Count 3.92 10^6/ul (4.00-5.40); Red Cell Distribution Width 13 % (10.5-15); White Blood Count 7.9 10^3/ul (3.5-10.8)
[2018-07-01 06:30] LABS: EGFR Non-African American 64.1 (>60)
[2018-07-01] MEDS ORDERED: Spironolactone TAB* 25 MG PO SCH (09:00)
[2018-07-01] MEDS ORDERED: Omeprazole CAP* 20 MG PO SCH (09:00)
[2018-07-01] MEDS ORDERED: Losartan TAB* 25 MG PO SCH (09:00)
[2018-07-01] MEDS ORDERED: Multivitamins/Minerals TAB PO SCH (09:00)
[2018-07-01] MEDS ORDERED: amLODIPine TAB* 5 MG PO SCH (09:00)
[2018-07-01] MEDS ORDERED: Mometasone/Formoter 200/5 MDI INH SCH (09:00)
--- NOTE | 2018-07-01 11:18 | ECHO ---
Patient: ADRIÁN GACRES [facility] Rec#: [id number] : 1960 Date: 07/01/2018 Age: 58y Height: 157 cm / 61.8 in Weight: 124 kg / 273.3 lbs Sex: F BSA: 2.2 Room#: 434 Admit Date#: 06/30/2018 Type: Inpatient Referring: Tyesha Rodriguez Reading: Jj Santo MD Iv Technician: Pallavi Negron RN RDCS CC: Wilfredo Greene MD Transthoracic Echocardiogram Indication: Chest pain, new A. fib BP: 141/72 HR: 72 Rhythm: NSR Findings History: HTN, asthma, obesity, multiple myeloma, Crohn's disease, arthritis, former smoker Technical Comments: The study is technically limited due to patient body habitus. Completed at 0845. Left Ventricle: The left ventricular chamber size is normal. Moderate concentric left ventricular hypertrophy is observed. Global left ventricular wall motion and contractility are within normal limits. There is normal left ventricular systolic function. The estimated ejection fraction is 60-65%. There is no consistent Doppler evidence of clinically significant diastolic dysfunction. Left Atrium: The left atrium is mildly dilated. Right Ventricle: The right ventricular chamber size and systolic function are within normal limits. The right ventricle wall thickness is mildly increased. Right Atrium: The right atrial cavity size is normal. Aortic Valve: The aortic valve structure is not well visualized. The aortic valve leaflets are mildly thickened. There is trace to mild aortic regurgitation. There is no evidence of aortic stenosis. Mitral Valve: The mitral valve leaflets are mildly thickened. There is mild mitral regurgitation. There is no evidence of mitral stenosis. Tricuspid Valve: The tricuspid valve structure is not well visualized. There is no evidence of tricuspid valve regurgitation. There is no tricuspid stenosis. Pulmonic Valve: The pulmonic valve structure is not well visualized. There is no evidence of pulmonic regurgitation. There is no pulmonic stenosis. Pericardium: There is no significant pericardial effusion. A pericardial fat pad is visualized. Aorta: The aorta is not well visualized. There is no dilation of the aortic root. Pulmonary Artery: The main pulmonary artery is not well visualized. Venous: The inferior vena cava appears normal in size. There is a greater than 50% respiratory change in the inferior vena cava dimension. Summary: There was not any prior study for comparison. Conclusions Global left ventricular wall motion and contractility are within normal limits. There is normal left ventricular systolic function. The estimated ejection fraction is 60-65%. There is trace to mild aortic regurgitation. There is mild mitral regurgitation. There is no evidence of tricuspid valve regurgitation. There is no significant pericardial effusion. Measurements Name Value Normal Range RVDdMajor (2D) 2.5 cm (2.2 - 4.4) RVAW (2D) 0.7 cm (0.2 - 0.5) RAd ISD 4CH 4.8 cm (3.4 - 4.9) RA (A4C)W 3.3 cm (2.9 - 4.6) IVSd (2D) 1.6 cm (0.6 - 1) LVPWd (2D) 1.4 cm (0.6 - 1) LVIDd (2D) 4 cm (3.6 - 5.4) LVIDs (2D) 2.7 cm - LV FS (2D) 33 % (25 - 45) Aortic Annulus 1.9 cm (1.4 - 2.6) Ao root diameter (2D) 3 cm (2.1 - 3.5) LA dimension (AP) 2D 3.6 cm (2.3 - 3.8) LAd ISD 4CH 6.2 cm (2.9 - 5.3) LA ISD 4CH W 3.7 cm (2.5 - 4.5) Name Value Normal Range LA ESV BP (A/L) index 20.2 ml/m2 - Name Value Normal Range MV E-wave Vmax 0.79 m/sec - MV deceleration time 310 msec - MV A-wave Vmax 1.2 m/sec - MV E:A ratio 0.7 ratio - LV septal e' Vmax 0.06 m/sec - LV lateral e' Vmax 0.08 m/sec - LV E:e' septal ratio 13.2 ratio - LV E:e' lateral ratio 9.9 ratio - Name Value Normal Range AV Vmax 1.6 m/sec - AV VTI 37.1 cm - AV peak gradient 10 mmHg - AV mean gradient 6 mmHg - LVOT Vmax 1.2 m/sec - LVOT VTI 27 cm - LVOT peak gradient 6 mmHg - LVOT mean gradient 4 mmHg - Name Value Normal Range IVC diameter 1.2 cm - Name Value Normal Range PV Vmax 0.88 m/sec -
[2018-07-01] MEDS ORDERED: Magnesium Sulfate 2 GM IV* 2 GM/50 ML BAG IVPB ONE (11:54)
[2018-07-01 11:57] VITALS: BP 140/84
[2018-07-01] MEDS ORDERED: Potassium Chlor TAB* 10 MEQ TAB.ER PO ONE (13:28)
--- NOTE | 2018-07-01 13:48 | PN ---
Subjective Date of Service: 07/01/18 Interval History: Patient denies chest pain or palpitation at this time, no reports of palpitation overnight. Denies shortness of breath. denies fever or chills. denies abd pain n/v/d. denies black or tarry stools. Family History: Unchanged from Admission Social History: Unchanged from Admission Past Medical History: Unchanged from Admission Objective Active Medications: Acetaminophen (Tylenol Tab*) 650 mg PO Q4H PRN PRN Reason: FEVER/PAIN Last Admin: 07/01/18 12:12 Dose: 650 mg Al Hydrox/Mg Hydrox/Simethicone (Maalox Plus*) 30 ml PO Q6H PRN PRN Reason: INDIGESTION Albuterol (Ventolin Hfa Inhaler*) 1 puff INH Q4H PRN PRN Reason: SHORTNESS OF BREATH Amlodipine Besylate (Norvasc Tab*) 10 mg PO 1800 [facility] Last Admin: 06/30/18 20:34 Dose: 10 mg Enoxaparin Sodium (Lovenox(*)) 40 mg SUBCUT Q24H [facility] Last Admin: 06/30/18 18:25 Dose: 40 mg Losartan Potassium (Cozaar Tab*) 100 mg PO 1800 [facility] Last Admin: 06/30/18 23:10 Dose: Not Given Magnesium Hydroxide (Milk Of Magnkirk Liq*) 30 ml PO Q4H PRN PRN Reason: CONSTIPATION Mometasone Furoate/Formoterol Fumar (Dulera 200/5 Mdi*) 2 puff INH DAILY [facility] Last Admin: 07/01/18 08:31 Dose: Not Given Multivitamins/Minerals (Theragran/Minerals Tab*) 1 tab PO DAILY [facility] Last Admin: 07/01/18 08:40 Dose: 1 tab Omeprazole (Prilosec Cap*) 40 mg PO DAILY [facility] Last Admin: 07/01/18 08:36 Dose: Not Given Spironolactone (Aldactone Tab*) 25 mg PO 1800 [facility] Last Admin: 06/30/18 20:36 Dose: 25 mg Vital Signs - 8 hr 07/01/18 07/01/18 09:53 11:40 Temperature 97.7 F 97.5 F Pulse Rate 88 83 Respiratory 20 16 Rate Blood Pressure 121/62 140/84 (mmHg) O2 Sat by Pulse 98 99 Oximetry Oxygen Devices in Use Now: None Eyes: No Scleral Icterus Ears/Nose/Mouth/Throat: Clear Oropharnyx, Mucous Membranes Moist Neck: NL Appearance and Movements; NL JVP, Trachea Midline Respiratory: Symmetrical Chest Expansion and Respiratory Effort, Clear to Auscultation Cardiovascular: NL Sounds; No Murmurs; No JVD, RRR, No Edema Abdominal: NL Sounds; No Tenderness; No Distention Extremities: No Edema, No Clubbing, Cyanosis Skin: No Rash or Ulcers Neurological: Alert and Oriented x 3 Nutrition: Taking PO's Result Diagrams: 07/01/18 05:41 07/01/18 05:41 Additional Lab and Data: Lab Results 06/30/18 06/30/18 06/30/18 Range/Units 14:32 14:32 14:32 WBC 10.3 (3.5-10.8) 10^3/ul RBC 4.36 (4.00-5.40) 10^6/ul Hgb 13.3 (12.0-16.0) g/dl Hct 40 (35-47) % MCV 92 (80-97) fL MCH 31 (27-31) pg MCHC 33 (31-36) g/dl RDW 13 (10.5-15) % Plt Count 340 (150-450) 10^3/ul MPV 8.2 (7.4-10.4) um3 Neut % (Auto) 69.0 (38-83) % Lymph % (Auto) 22.4 L (25-47) % [place] % (Auto) 6.9 (0-7) % Eos % (Auto) 0.8 (0-6) % Baso % (Auto) 0.9 (0-2) % Absolute Neuts (auto) 7.1 (1.5-7.7) 10^3/ul Absolute Lymphs (auto) 2.3 (1.0-4.8) 10^3/ul Absolute Monos (auto) 0.7 (0-0.8) 10^3/ul Absolute Eos (auto) 0.1 (0-0.6) 10^3/ul Absolute Basos (auto) 0.1 (0-0.2) 10^3/ul Absolute Nucleated RBC 0 10^3/ul Nucleated RBC % 0.1 Sodium 138 (135-145) mmol/L Potassium 3.8 (3.5-5.0) mmol/L Chloride 106 (101-111) mmol/L Carbon Dioxide 26 (22-32) mmol/L Anion Gap 6 (2-11) mmol/L BUN 17 (6-24) mg/dL Creatinine 0.96 H (0.51-0.95) mg/dL Est GFR ( Amer) 72.0 (>60) Est GFR (Non-Af Amer) 59.5 (>60) BUN/Creatinine Ratio 17.7 (8-20) Glucose 100 (70-100) mg/dL Calcium 9.0 (8.6-10.3) mg/dL Magnesium 1.5 L (1.9-2.7) mg/dL Total Bilirubin 0.30 (0.2-1.0) mg/dL AST 16 (13-39) U/L ALT 21 (7-52) U/L Alkaline Phosphatase 78 (34-104) U/L Troponin I 0.00 (<0.04) ng/mL B-Natriuretic Peptide 264 H ( - 100) pg/mL Total Protein 7.5 (6.4-8.9) g/dL Albumin 3.5 (3.2-5.2) g/dL Globulin 4.0 (2-4) g/dL Albumin/Globulin Ratio 0.9 L (1-3) Lipase 15 (11.0-82.0) U/L TSH 1.54 (0.34-5.60) mcIU/mL Assess/Plan/Problems-Billing Assessment: Ms. Garces is ia 58 y.o female with a pmhx of htn, asthma, who presented from urgent care to the ER with palpitation and shortness of breath found to be in afib. - Patient Problems (1) Paroxysmal A-fib Status: Acute Code(s): I48.0 - PAROXYSMAL ATRIAL FIBRILLATION SNOMED Code(s) : 518250129 Comment: Initial EKG recording at urgent care was a-fib- patient converted to SR prior to arrival to the ED. No further episodes of afib. Given the patient reported symptoms of frequent palpitions assiociated with fatigue shortness of breath and chest pain. Chadvasc score 2 and hasbled score of 1 - itis recommended that the patient be placed on antiocagulation to prevent stroke associated with afib. patient was advised of the types of anticoagulation available risks and benefits of both. Discussed wih Dr. Morataya her screening representative who recommended xa inhibiotr for anticoagulation. patient agrees and will be started on xeralto 20 mg daily. I will also change her calcium channel curtis from norvasc to cardizem CD 120 mg- to assist with rate control. Patient did have an Echo which showed EF 55-60 %- Mild MR i suspect that these episodes could be related to electrolyte imbalance as well as possible undiagnosed sleep apnea - i would recommend sleep study as an outpatient (2) Asthma Status: Acute Code(s): J45.909 - UNSPECIFIED ASTHMA, UNCOMPLICATED SNOMED Code(s): 498969172 Comment: continue home medications (3) HTN (hypertension) Status: Acute Code(s): I10 - ESSENTIAL (PRIMARY) HYPERTENSION SNOMED Code(s) : 53969006 Comment: continue home medications change norvasc to cardizem cd to assist with rate control -palpitaitons (4) Hypomagnesemia Status: Acute Code(s): E83.42 - HYPOMAGNESEMIA SNOMED Code(s): 855977276 Comment: given magnesium repeat magnesium in 1 week Mag oxide 400 mg daily (5) DVT prophylaxis Status: Acute Code(s): RWD0400 - SNOMED Code(s): 261790834 Comment: zia (6) Full code status Status: Acute Code(s): Z78.9 - OTHER SPECIFIED HEALTH STATUS SNOMED Code(s) : 629024079 Status and Disposition: discharge
[2018-07-01] MEDS ORDERED: Rivaroxaban TAB(*) 20 MG TAB PO SCH (15:00)
== END 2018-07-01 15:30 | disposition home or self-care (01) ==
LOC: ED 13:42 → MEDTELE 16:00
PROVIDERS: ADMIT Internal Medicine; ATTEND Internal Medicine
DX: I48.0 Paroxysmal atrial fibrillation (principal); J45.909 Unspecified asthma, uncomplicated; I10 Essential (primary) hypertension; E83.42 Hypomagnesemia; R06.02 Shortness of breath; R00.2 Palpitations; Z87.19 Personal history of other diseases of the digestive system; Z85.79 Personal history of other malignant neoplasms of lymphoid, hematopoietic and related tissues; M19.90 Unspecified osteoarthritis, unspecified site; L40.9 Psoriasis, unspecified; E66.9 Obesity, unspecified; Z87.891 Personal history of nicotine dependence
CPT/HCPCS: 36415; 71045; 71275; 80048; 80053; 80061; 80307; 81003; 81015; 83690; 83735; 83880; 84443; 84484; 85025; 87086; 93005; 93306; 96365; 96366; 96372; 99284; A9270-GY; G0378; J1650; J3475; Q9967

== ENCOUNTER 2018-09-07 16:19 | Emergency (ER) | payer OTHER ==
--- OUTSIDE RECORDS SUMMARY | 2018-09-07 17:07 | XMS REPORT | Continuity of Care Document ---
:1960 External Reference #:[id number] Author Name SholaJan suarez Care Team Providers Name Role Phone Wilfredo Scanlon MD Primary Care Physician Unavailable Payers Type Date Identification Numbers Payment Provider Subscriber Policy Number: [id number] [employer] Emmanuelle Garces Group Number: [id number] [id number] Group Name: [place] [address] PayID: [id number] Advance Directives Description No Information Available Problems Date Description Provider Status Onset: 10/18/2015 [...] Disease Social History Type Date Description Comments Sex Unknown Lives With Alone 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 ETOH Use Occasionally consumes alcohol Tobacco Use Start: Unknown former smoker qui9t 1985 Smoking Status Reviewed: 08/11/18 former smoker qui9t 1986 Exercise Type/Frequency Exercises regularly Allergies, Adverse Reactions, Alerts Date Description Reaction Status Severity Comments 09/24/2013 Penicillin Active 09/24/2013 Sulfa Antibiotics Active 09/24/2013 Remicade Active 09/24/2013 Celebrex Active 10/18/2015 Azathioprine Active Medications Medication Date Status Form Strength Qnty SIG Indications Ordering Provider Ondansetron HCL / Active Tablets 4mg take 1 Unknown 0000 tablet by mouth every 8 hours Spironolactone / Active Tablets 25mg 1 tab by Unknown 0000 mouth daily Irbesartan / Active Tablets 300mg 1 tab by Unknown 0000 mouth daily Multi Vitamin / Active Tablets 1 by mouth Unknown 0000 every day Diltiazem HCL / Active Tablets 120mg 1 by mouth Unknown 0000 every day Magnesium / Active Tablets 400mg 1 by mouth Unknown 0000 every day Nucynta / Active Tablets as needed Unknown 0000 Gammagard / Active Solution 5GM/50ML as directed Unknown 0000 Dovonex / Active Cream 0.005% apply Unknown 0000 topical daily Terconazole / Active Cream 0.4% one Unknown 0000 applicator per vagina every night as directed Epipen 2-Glenn / Active Solution 0.3mg/0.3 use as Unknown 0000 Auto-Injec ML directed t Omeprazole / Active Capsules 40mg 1 by mouth Unknown 0000 [address] every day Albuterol / Active Nebulizer 1.25mg/3M use four Unknown Sulfate 0000 L times a day as needed with nebulizer Ventolin HFA / Active Aerosol 108(90Bas 2 puffs by Unknown 0000 e) mouth four mcg/Act times a day as needed Wrist Splint 01/04/ Hx Misc 2unit wear as Soo Marrero 2015 - s directed Zahida, 05/19/ dx: g56.01 Holley 2017 g56.02 Diazepam 10/21/ Hx Tablets 5mg 2tabs 1 tab 30 Soo Marrero 2016 - minutes Zahida, 02/21/ before Holley mulligan 2016 make take a second tablet if needed Flexeril 04/09/ Hx Tablets 10mg 30tab 1 po tid Jm 2011 - s prashant Jacobs, Holley 2014 Neurontin 04/09/ Hx Capsules 300mg 40cap 1 po qhs Jm 2011 Arlene, M.D. 2013 Mobic 03/12/ Hx Tablets 7.5mg 60tab one tab po 2011 bid prn Arlene, M.D. 2013 Valium 02/26/ Hx Tablets 5mg 2tabs 1 po 2 2011 - hours prior Arlene, 09/24/ to december. 2013 take one more at the time of the MRI Diovan /00/ Hx Unknown - 2015 Ibuprofen // Hx Unknown - 2015 Vitamin 00/ Hx Unknown B-Complex 100 - 2015 Valsartan-Hydroc / Hx Tablets 160-12.5m take 1 Unknown hlorothiazide 0000 - g tablet once daily 2018 Advair Diskus / Hx Aerosol 100-50mcg 1 Unknown 0000 - /Dose inhalation 05/19/ twice daily 2018 prn Vitamin B-12 / Hx injections Unknown 0000 - once 05/19/ monthly 2018 Pepcid / Hx Tablets 20mg 1 by mouth Unknown 0000 - every day 2015 Amlodipine / Hx Tablets 10mg Unknown Besylate 0000 - 2017 Prilosec / Hx Capsules 40mg 1 by mouth Unknown 0000 - DR every day 2017 Advair Diskus 00/ Hx Aerosol 250-50mcg 1 puff by Unknown 0000 - /Dose mouth twice 08/10/ a day 2018 Proair HFA / Hx Aerosol 108(90Bas 2 puffs by Unknown 0000 - e) mouth every 08/10/ mcg/Act 4 hours as 2018 needed Vitamin B12 TR / Hx Tablets ER 1000mcg 1 by mouth Unknown 0000 - every day 2017 Medications Administered in Office Medication Date Status Form Strength Qnty SIG Indications Ordering Provider Triamcinolone 08/11/ Administered Injection Darrell (Kenalog) 2017 MD Kelly Depomedrol 40MG 06/02/ Administered Injection Rudolph F 2017 MD Angelica Triamcinolone 05/20/ Administered Injection Darrell (Kenalog) 2017 MD Kelly Depomedrol 80MG 09/24/ Administered Injection Angely 2013 Holley Garcia Depomedrol 80MG 09/24/ Administered Injection Angely 2013 Holley Garcia Depomedrol 80MG 09/24/ Administered Injection Angely 2013 Holley Garcia Immunizations Description No Information Available Vital Signs Date Vital Result Comment 08/11/2018 11:32am Height 60 inches 5'0" Weight 275.00 lb BP Systolic Sitting 154 mmHg BP Diastolic Sitting 94 mmHg Pain Level 6 BMI (Body Mass Index) 53.7 kg/m2 06/02/2018 2:55pm Heart Rate 108 /min BP Systolic 128 mmHg BP Diastolic 90 mmHg Body Temperature 99.5 F Pain Level 8 05/20/2018 9:55am Height 60 inches 5'0" Weight 275.00 lb Heart Rate 76 /min Respiratory Rate 18 /min Pain Level 5 BMI (Body Mass Index) 53.7 kg/m2 02/23/2016 11:54am Height 66 inches 5'6" Weight 250.00 lb Heart Rate 80 /min BP Systolic Sitting 140 mmHg BP Diastolic Sitting 92 mmHg Respiratory Rate 20 /min BMI (Body Mass Index) 40.3 kg/m2 12/20/2015 12:39pm Height 66 inches 5'6" Heart Rate 80 /min BP Systolic Sitting 150 mmHg BP Diastolic Sitting 88 mmHg Respiratory Rate 16 /min 10/18/2015 10:12am Height 66 inches 5'6" Weight 242.00 lb Heart Rate 76 /min BP Systolic Sitting 132 mmHg BP Diastolic Sitting 74 mmHg Respiratory Rate 16 /min BMI (Body Mass Index) 39.1 kg/m2 09/24/2013 10:14am Height 66 inches 5'6" Weight 220.00 lb Heart Rate 74 /min BP Systolic 150 mmHg BP Diastolic 90 mmHg BMI (Body Mass Index) 35.5 kg/m2 Results Test Date Facility Test Result H/L Range Note Paraneoplastic [facility] Paraneoplastic Ab See Comment N 1 Evaluation [address] [place] [address] [phone] Anti-Neuronal Nuclear Ab Type1 Negative titer N <1:240 Reflex Added None. N Anti-Neuronal Nuclear Ab Type2 Negative titer N <1:240 Anti-Neuronal Nuclear Ab Type3 Negative titer N <1:240 Anti-Glial/Neuronal Nuc Ab-1 A Negative titer N <1:240 Purkinje Cell Cytoplasm Type 1 Negative titer N <1:240 Purkinje Cell Cytoplasm Type 2 Negative titer N <1:240 Purkinje Cell Cytoplasm Typ Tr Negative titer N <1:240 Amphiphysin Antibody Negative titer N <1:240 CRMP-5 IgG Antibody Negative titer N <1:240 2 Anti-Striated Muscle Antibody Negative titer N <1:120 Calcium Channel Binding Ab P/Q 0.00 nmol/L N <=0.02 N Type Calcium Channel Binding 0.00 nmol/L N <=0.03 ACh Receptor Muscle Binding Ab 0.00 nmol/L N <=0.02 AChR Ganglionic Neuronal Ab 0.00 nmol/L N <=0.02 Voltage-Gated Potassium Chann 0.00 nmol/L N <=0.02 3 Leukemia/Lymphoma Flow 11/11/2015 [facility] Path Interpretation TNP N [address] 2[address] [place] [address] [phone] Path Interpret > 16 Marker TNP N Path Interpret 9-15 Marker (SEE NOTE) N 4 Laboratory test 11/11/2015 [facility] Surgical SEE RESULT [address] [place] [address] [phone] Plasma Cell 11/11/2015 [facility] Plasma Cell Dis Abnormal N Profliferative [address] [place] [address] [phone] Plasma Cell Prolif Specimen Bone Marrow N Plasma Cell Prolif Dis Source See Comment N 6 Plasma Cell Referral Reason See Comment N 7 Plasma Cell Prolif Dis Method See Comment N 8 Plasma Cell Dis Result Table See Comment N 9 Plasma Cell Prolif Dis Results See Comment N 10 Plasma Cell Dis Interpretation See Comment N 11 Plasma Cell Dis Disclaimer See Comment N 12 Plasma Cell Dis Released By See Comment N 13 Laboratory test 10/18/2015 [facility] Vitamin B12 388 pg/mL N 180-914 [address] [place] [address] [phone] Folic Acid (Folate) 12.72 ng/mL N >3.99 15 Jennifer (Antinuclear Antibodies) Negative N Negative 16 Protein 10/18/2015 [facility] Total 7.7 g/dL N 6.3 - Electrophoresis [address] Protein(Pep) 7.9 [place] [address] [phone] Albumin 3.4 g/dL N 3.4-4.7 Alpha-1 Globulin 0.3 g/dL N 0.1-0.3 Alpha-2 Globulin 1.1 g/dL Abnormal 0.6-1.0 Beta Globulin 1.0 g/dL N 0.7-1.2 Gamma Globulin 1.9 g/dL Abnormal 0.6-1.6 Albumin/Globulin Ratio 0.81 N M Reilly 1.7 g/dL N Impression See Comment N 17 Immunofixation See Comment N 18 1 No informative autoantibodies were detected in this evaluation. However, a negative result does not exclude neurological autoimmunity with or without associated neoplasia. 2 CRMP-5 Titers lower than 1:240 may be detectable by recombinant CRMP-5 western blot analysis, available by request on stored serum and recommended in cases of chorea, vision loss, cranial neuropathy and myelopathy. Extramural clients contact [facility]quiry at to add-on CRMP-5-IgG Western Blot, Serum. Intramural Clients, please call the Neuroimmunology Lab at [phone]. 3 Test Performed by: [place] [address] Bracelet Former: Brian Castanon II, M.D., Ph.D. 4 FINAL [...] Gloria Crow MD Technical component performed by: [place] [address] Bracelet Former: Brian Castanon II, MD, PhD. 5 SEE RESULT BELOW Name: EMMANUELLE GARCES : [address]: Irene Schneider MD Acct: [id number] Unit: [id number] AGE: 55 Location: [facility] Re11/11/15 SEX: F Status: REG REF SPEC: [id number] WILMER: 11/11/15-50 [facility] [address]: Irene Schneider MD REQ: [id number] RECD: 11/11/15 STATUS: SOUT _ ORDERED: IRON [...] performed at Main Lab DEPARTMENT OF PATHOLOGY, [address] [place] [address] Wilver Carrillo M.D. Director [facility] # [id number] RUN DATE: 11/16/15 [facility] LAB LIVE PAGE 2 Patient: EMMANUELLE GARCES [id number] (Continued) SPECIAL STUDIES (Continued) SPECIAL STUDIES Flow cytometry has been performed at [facility], [place], [place]. The testing reveals: FINAL DIAGNOSIS: Specimen [...] Gloria Crow MD Technical component performed by: [facility] - [address] [address] Bracelet Former: Brian Castanon II, MD, PhD. CONTINUED ON NEXT PAGE * ML=Testing performed at Main Lab DEPARTMENT OF PATHOLOGY, [address] [place] [address] Wilver Carrillo M.D. Director [facility] # [id number] RUN DATE: 11/16/15 [facility] LAB LIVE PAGE 3 Patient: EMMANUELLE GARCES [id number] (Continued) PRE-OPERATIVE DIAGNOSIS (Continued) PRE-OPERATIVE DIAGNOSIS D47.2 [...] performed at Main Lab DEPARTMENT OF PATHOLOGY, [address] [place] [address] Wilver Carrillo M.D. Director [facility] # [id number] RUN DATE: 11/16/15 [facility] LAB LIVE PAGE 4 Patient: EMMANUELLE GARCES [id number] (Continued) MICROSCOPIC DESCRIPTION (Continued) Signed (signature on file) Wilver Carrillo MD 1458 END OF REPORT * ML=Testing performed at Main Lab DEPARTMENT OF PATHOLOGY, [address] [place] [address] Wilver Carrillo M.D. 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 A TP53 deletion is associated with an unfavorable prognosis in multiple myeloma, irrespective of any other abnormalities detected (Dangelo et al., Blood 101:8612-1606, 2003). The prognostic significance for these abnormalities in MGUS, amyloidosis, or smoldering multiple myeloma is unknown. PDF Report available at: [email or web address] 12 Applicable to Analyte Specific Reagent (ASR) and Laboratory Developed Tests (LDT). This test was developed and its performance characteristics determined by [facility]. It has not been cleared or approved by the U.S. Food and Drug Administration. This FISH test does not rule out other chromosome abnormalities. 13 RESULT: Wilver Washington, Ph.D. Test Performed by: [place] [address] Bracelet Former: Brian Castanon II, M.D., Ph.D. 14 Normal Range 180 to 914 Indeterminate Range 145 to 180 Deficient Range <145 15 with immunofixation Copy Result to: WILFREDO SCANLON ([id number]) 16 with immunofixation Copy Result to: WILFREDO SCANLON ([id number]) 17 M-spike in gamma fraction. See Immunofixation. Test Performed by: [place] [address] Bracelet Former: Brian Castanon II, M.D., Ph.D. 18 Monoclonal IgG kappa. C/W MGUS, early myeloma, amyloidosis, etc. Suggest 24-hr urine Monoclonal Protein Studies. Suggest Immunoglobulin Free Light Chains, Serum Test Performed by: [place] [address] Bracelet Former: Brian Castanon II, M.D., Ph.D. Procedures Date Code Description Status 08/11/2018 Inject/Drain Joint/Bursa Major W/O US Completed 07/01/2018 08572 ECHO Transthorasic Realtime 2D W Doppler & Color Flow Hosp Completed 06/02/2018 Inj/Aspir Major JT Or Bursa W/ US Completed 05/20/2018 22259 Inject/Drain Joint/Bursa Major W/O US Completed 12/20/2015 37032 Nerve Conduction 13+ Studies Completed 09/24/201378786 Inject Tendon Sheath Or Ligament Aponeurosis Eg Plantar Completed Fascia 09/24/201340286 Inject Tendon Sheath Or Ligament Aponeurosis Eg Plantar Completed Fascia 09/24/201351917 Inject Tendon Sheath Or Ligament Aponeurosis Eg Plantar Completed Fascia Encounters Type Date Location Provider Dx Diagnosis Office Visit 06/30/2018 [place] Chante Arambula R07.9 Chest pain, 9:31a Assoc,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 shoulder Office Visit 05/20/2018 Orthopedic Darrell M17.0 Bilateral primary 9:00a Services Of MD Kelly osteoarthritis of C.[facility].A. knee M17.12 Unilateral primary osteoarthritis, left knee Office Visit 02/23/2016 [place] a[place]re[place] G62.9 Polyneuropathy, 11:45a Neurologic Holley Teague unspecified Services Of [facility] G56.02 Carpal tunnel syndrome, left upper limb G56.01 Carpal tunnel syndrome, right upper limb Office Visit 10/18/2015 [place] Marrero G62.9 Polyneuropathy, 10:00a Neurologic Holley Teague unspecified Services Of [facility] R20.2 Paresthesia of skin R26.81 Unsteadiness on feet M54.16 Radiculopathy, lumbar region Office Visit 09/24/2013 10:00a Orthopedic Angely Garcia 727.03 Trigger Finger Services Of Holley Renteria C.M.ASofia 727.42 Ganglion Tendon Sheath 727.49 Cyst Synovial Other Office Visit 06/30/2012 11:00a Neurosurgery Bear Hamlin 719.45 Pain Joint Services Of Curtis Martin M.D. 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 Localized Pelvic & Thigh Office Visit 02/27/2012 Orthopedic Jm 726.5 Enthesopathy Of Hip 9:00a Services Of Hloley Jacobs Region C.M.ASofia 733.43 Aseptic Necrosis Medial Femoral Condyle Plan of Treatment Future Appointment(s):09/16/2018 9:15 am - Rudolph Dominguez MD at Orthopedic Services Of [facility].08/11/2018 - Darrell Mendoza, MDM17.0 Bilateral primary osteoarthritis of kneeFollow up:Follow Up: As needed
[2018-09-07] MEDS ORDERED: HYDROcodone/ACETAMIN 5-325 MG* 1 TAB PO ONE (19:14)
[2018-09-07] MEDS ORDERED: Methocarbamol TAB* 500 MG PO ONE (19:15)
[2018-09-07] MEDS ORDERED: Morphine VIAL* 10 MG/ML 1 ML VIAL IM ONE (19:18)
[2018-09-07] MEDS ORDERED: Morphine VIAL* 4 MG/ML VIAL (1 ml vial) ONE (19:24)
[2018-09-07 19:44] LABS: Hematocrit 40 % (35-47); Hemoglobin 13.3 g/dl (12.0-16.0); Mean Corpuscular HGB Conc 33 g/dl (31-36); Mean Corpuscular Hemoglobin 30 pg (27-31); Mean Corpuscular Volume 90 fL (80-97); Mean Platelet Volume 7.5 fL (7.4-10.4); Platelet Count 351 10^3/ul (150-450); Red Blood Count 4.43 10^6/ul (4.00-5.40); Red Cell Distribution Width 14 % (10.5-15)
[2018-09-07] MEDS ORDERED: Lidocaine PATCH 5%* 1 PATCH TRANSDERM SCH (20:00)
[2018-09-07 20:02] LABS: Albumin 3.8 g/dL (3.2-5.2); Albumin/Globulin Ratio 1.2 (1-3); BUN/Creatinine Ratio 36.4 (8-20); C Reactive Protein 6.17 mg/L (<8.01); Calcium 9.5 mg/dL (8.6-10.3); EGFR Non-African American 65.8 (>60); Globulin 3.3 g/dL (2-4); Potassium 4.3 mmol/L (3.5-5.0); Total Bilirubin 0.3 mg/dL (0.2-1.0); Total Protein 7.1 g/dL (6.4-8.9)
[2018-09-07 20:04] LABS: ABS Basophils 0 10^3/ul (0-0.2); ABS Eosinophils 0 10^3/ul (0-0.6); ABS Lymphocytes 1.1 10^3/ul (1.0-4.8); ABS Neutrophils 14.9 10^3/ul (1.5-7.7); ABS Nucleated RBC 0 10^3/ul; Eosinophil % 0 %; Lymphocyte % 6.2 %; Nucleated Red Blood Cells % 0
[2018-09-07] MEDS ORDERED: Morphine VIAL* 4 MG/ML VIAL (1 ml vial) IM ONE (20:09)
--- NOTE | 2018-09-07 21:26 | ED ---
Back Pain - HPI Summary HPI Summary: 58 year old female presents with back pain for the past couple days. She states the pain starts on the left side of her back and radiates down her leg. States is in her entire leg. She does have a history of sciatica. She states that she did come back from a trip and attending a this weekend so was on her feet. she states no position in comfortable. She states that this pain started in July and has progressed since. She denies any chest pain or shortness of breath. She denies any urinary symptoms. No fevers. No loss of bowel or bladder saddle anesthesia. she admits to numbness and tingling. She denies any weakness. states has been having difficulties walking due to the pain. She has a follow-up with the pain clinic on Saturday to have an epidural done. She states she tried her nuycenta without relief. - History of Current Complaint Chief Complaint: EDExtremityLower Stated Complaint: LT LEG PAIN Time Seen by Provider: 09/07/18 18:48 Hx Last Menstrual Period: Sep 2012 (currently going through menopause) Pain Intensity: 9 - Allergies/Home Medications Allergies/Adverse Reactions: Allergies Allergy/AdvReac Type Severity Reaction Status Date / Time azathioprine Allergy Severe Anaphylatic Verified 09/07/18 16:45 Shock celecoxib [From Celebrex] Allergy Severe Anaphylatic Verified 09/07/18 16:45 Shock Penicillins Allergy Severe Anaphylatic Verified 09/07/18 16:45 Shock Sulfa (Sulfonamide Allergy Severe Anaphylatic Verified 09/07/18 16:45 Antibiotics) Shock infliximab [From Remicade] Allergy Unknown Unknown Verified 09/07/18 16:45 Reaction Details gluten Allergy GI Upset Verified 09/07/18 16:45 ENVIRONMENTAL Allergy Runny Nose Uncoded 09/07/18 16:45 Home Medications: Home Medications Diltiazem CD CAP* [Cardizem CD CAP*] 120 mg PO BID 09/07/18 [History Confirmed 09/07/18] Norethindrone 5 mg PO DAILY 09/07/18 [History Confirmed 09/07/18] Tapentadol HCl [Nucynta] 50 mg PO Q6HR PRN 09/07/18 [History Confirmed 09/07/18] PMH/Surg Hx/FS Hx/Imm Hx Endocrine/Hematology History: Reports: 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 Denies: Hx Diabetes Cardiovascular History: Reports: Hx Hypertension - CONTROL WITH MEDS, Other Cardiovascular Problems/Disorders - DVT IN LEG 30 YEARS AGO Denies: Hx Pacemaker/ICD Respiratory History: Reports: Hx Asthma, Hx Chronic Obstructive Pulmonary Disease (COPD) - YES ?, Other Respiratory Problems/Disorders - RECENT URI - NO PROBLEMS NOW GI History: Reports: Hx Crohn's Disease, Hx Gastroesophageal Reflux Disease - ACID REFLUX - PRN MEDS History: Denies: Hx Dialysis, Hx Renal Disease Musculoskeletal History: Reports: Hx Arthritis - GENERALIZED, Hx Back Problems - chronic low back pain Denies: Hx Osteoporosis Sensory History: Reports: Hx Contacts or Glasses Denies: Hx Hearing Aid Opthamlomology History: Reports: Hx Contacts or Glasses Neurological History: Reports: Other Neuro Impairments/Disorders - BALANCE ISSUES DUE TO NEUROPATHY IN BILATERAL FEET Psychiatric History: Denies: Hx Panic Disorder - Cancer History Cancer Type, Location and Year: "SMOLDERING MULTIPLE MYELOMA" Hx Chemotherapy: No Hx Radiation Therapy: No - Surgical History Surgery Procedure, Year, and Place: 1996 RESECTION OF COLON(LARGE PORTION OF LARGE INTESTINES, [place]. 2005 EXCISION OF VULVAR LESION RIGHT SIDE, [facility] [place]. 2011 DILATION CURETTAGE, HYSTEROSCOPY, POLYPECTOMY WITH CERVICAL BIOPSY, [facility] [place]. 2013 BILATERAL HIP REPLACEMENT, [place], [place]. 2014 LUMBAR DISCECTOMY, [place], [place] Hx Anesthesia Reactions: Yes - WOKE DURING ONE OF HIP SURGERY RELATED TO "MEDICATION PUSH" - Immunization History Date of Tetanus Vaccine: utd Date of Influenza Vaccine: utd Infectious Disease History: No Infectious Disease History: Reports: Hx Shingles Denies: Traveled Outside the in Last 30 Days - Family History Known Family History: Positive: Hypertension Negative: Diabetes - Social History Alcohol Use: Weekly Alcohol Amount: 3 Hx Substance Use: No Substance Use Type: Reports: None Hx Tobacco Use: No Smoking Status (MU): Former Smoker Type: Cigarettes Amount Used/How Often: 3 PPD Length of Time of Smoking/Using Tobacco: 13 YEARS Have You Smoked in the Last Year: No Review of Systems Negative: Fever Negative: Chest Pain Negative: Shortness Of Breath Positive: Myalgia - back pain All Other Systems Reviewed And Are Negative: Yes Physical Exam Triage Information Reviewed: Yes Vital Signs On Initial Exam: Initial Vitals Temp Pulse Resp BP Pulse Ox 97.1 F 94 18 206/98 98 01/06/19 16:38 09/07/18 16:38 09/07/18 16:38 09/07/18 16:38 09/07/18 16:38 Vital Signs Reviewed: Yes Appearance: Positive: Pain Distress Skin: Positive: Warm, Dry Head/Face: Positive: Normal Head/Face Inspection Eyes: Positive: Normal, Conjunctiva Clear ENT: Positive: Pharynx normal Respiratory/Lung Sounds: Positive: Clear to Auscultation, Breath Sounds Present Cardiovascular: Positive: Normal, RRR Abdomen Description: Positive: Nontender, Soft Bowel Sounds: Positive: Present Musculoskeletal: Positive: Limited @ - back pain, Other - babskini normal, tenderness left SI joint, positive slr, good pulses Neurological: Positive: Normal, Normal Gait Psychiatric: Positive: Normal Diagnostics - Vital Signs Vital Signs Temp Pulse Resp BP Pulse Ox 09/07/18 20:38 104 95 09/07/18 20:35 165/84 09/07/18 20:10 20 09/07/18 19:01 110 96 09/07/18 16:38 97.1 F 94 18 206/98 98 - Laboratory Lab Results: Lab Results 09/07/18 09/07/18 Range/Units 18:45 18:45 WBC 17.0 H (3.5-10.8) 10^3/ul RBC 4.43 (4.00-5.40) 10^6/ul Hgb 13.3 (12.0-16.0) g/dl Hct 40 (35-47) % MCV 90 (80-97) fL MCH 30 (27-31) pg MCHC 33 (31-36) g/dl RDW 14 (10.5-15) % Plt Count 351 (150-450) 10^3/ul MPV 7.5 (7.4-10.4) fL Neut % (Auto) 87.9 % Lymph % (Auto) 6.2 % [place] % (Auto) 5.6 % Eos % (Auto) 0 % Baso % (Auto) 0.3 % Absolute Neuts (auto) 14.9 H (1.5-7.7) 10^3/ul Absolute Lymphs (auto) 1.1 (1.0-4.8) 10^3/ul Absolute Monos (auto) 1.0 H (0-0.8) 10^3/ul Absolute Eos (auto) 0 (0-0.6) 10^3/ul Absolute Basos (auto) 0 (0-0.2) 10^3/ul Absolute Nucleated RBC 0 10^3/ul Nucleated RBC % 0 Sodium 136 (135-145) mmol/L Potassium 4.3 (3.5-5.0) mmol/L Chloride 107 (101-111) mmol/L Carbon Dioxide 22 (22-32) mmol/L Anion Gap 7 (2-11) mmol/L BUN 32 H (6-24) mg/dL Creatinine 0.88 (0.51-0.95) mg/dL Est GFR ( Amer) 79.6 (>60) Est GFR (Non-Af Amer) 65.8 (>60) BUN/Creatinine Ratio 36.4 H (8-20) Glucose 130 H (70-100) mg/dL Calcium 9.5 (8.6-10.3) mg/dL Total Bilirubin 0.30 (0.2-1.0) mg/dL AST 15 (13-39) U/L ALT 29 (7-52) U/L Alkaline Phosphatase 39 (34-104) U/L C-Reactive Protein 6.17 (<8.01) mg/L Total Protein 7.1 (6.4-8.9) g/dL Albumin 3.8 (3.2-5.2) g/dL Globulin 3.3 (2-4) g/dL Albumin/Globulin Ratio 1.2 (1-3) Result Diagrams: 09/07/18 18:45 09/07/18 18:45 Lab Statement: Any lab studies that have been ordered have been reviewed, and results considered in the medical decision making process. - CT back CT Interpretation Completed By: Radiologist Summary of CT Findings: IMPRESSION: 1. Degenerative disc disease at the L4-5 level without appreciable change from. the comparison study. 2. Multilevel degenerative facet disease. 3. No acute fracture, subluxation, or aggressive osseous lesion. Re-Evaluation - Re-Evaluation First Eval Change: Improved Comment: minimial improvement Second Eval Comment: same, was able to move from bed to wheelchair Third Eval Re-Evaluation Time: 22:45 Comment: able to ambulate but unsteady Fourth Eval Comment: discussed will try one last dose of pain medication Fifth Eval Re-Evaluation Time: 00:54 Comment: discussed that potential that do not have any beds in the hospital and patient states will try at home. Back Pain Course/Dx - Course Course Of Treatment: 58 year old female presents with back pain for the past couple days. She states the pain starts on the left side of her back and radiates down her leg. States is in her entire leg. She does have a history of sciatica. She states that she did come back from a trip and attending a this weekend so was on her feet. she states no position in comfortable. She states that this pain started in July and has progressed since. She denies any chest pain or shortness of breath. She denies any urinary symptoms. No fevers. No loss of bowel or bladder saddle anesthesia. she admits to numbness and tingling. She denies any weakness. states has been having difficulties walking due to the pain. She has a follow-up with the pain clinic on Saturday to have an epidural done. She states she tried her nuycenta without relief. on exam tenderness left side of back. neurovasular intact. wbc elevated but is currently on steriods and history of MM. crp normal. CT lumbar shows disc herniation L4-L5. gave multiple dose of pain medication and patient had no relief. patient did ambulate twice in ED although only a short distance. discussed with patient and patient would like to be admitted. discussed with dr jose that limited beds on the floor and is unsure if can admit patient. discussed again with patient about situation of potentially no beds and patient decided to leave. will prescribe short course of morphine as required so many dose of pain medication here. will have start on gabapentin. patient understand and agrees with plan. - Diagnoses Differential Diagnosis/HQI/PQRI: Positive: Fracture, Herniated Disc, Strain Provider Diagnoses: Back pain Discharge - Sign-Out/Discharge Documenting (check all that apply): Patient Departure - Discharge Plan Condition: Good Disposition: HOME Prescriptions: Docusate CAP* [Colace Cap*] 100 mg PO BID #10 cap Gabapentin CAP(*) [Neurontin 100 mg CAP(*)] 100 mg PO TID #20 cap Methocarbamol TAB* [Robaxin 500 MG TAB*] 500 mg PO TID PRN #12 tab PRN Reason: Pain Morphine TAB (NF) 15 mg PO Q4H PRN #12 tab MDD 6 PRN Reason: Pain Ondansetron ODT TAB* [Zofran 4 MG Odt TAB*] 4 mg PO Q6H PRN #12 tab.odt PRN Reason: Nausea Patient Education Materials: Back Pain (ED) Referrals: Wilfredo Greene MD [Primary Care Provider] - Additional Instructions: follow up with primary within 5 days heat on the area, stretch Take morphine every 4-6 hours as needed for pain take robaxin three times a day start gabapentin once a day, then twice a day for 2 days, then three times a day , follow up with primary to have dose adjusted from there take colace twice a day for constipation Return to ED if develop any new or worsening symptoms - Billing Disposition and Condition Condition: GOOD Disposition: Home
[2018-09-07] MEDS ORDERED: Morphine VIAL* 4 MG/ML VIAL (1 ml vial) IV ONE (21:47)
[2018-09-07] MEDS ORDERED: HYDROmorphone INJ* 2 MG/ML CARPUJECT SYRINGE IV SLOW PU ONE (23:02)
[2018-09-07] MEDS ORDERED: HYDROmorphone INJ1* 1 MG/ML SYRINGE IV SLOW PU ONE (23:20)
[2018-09-08] MEDS ORDERED: Ondansetron INJ* 2 MG/ML VIAL IV ONE (00:12)
[2018-09-08 00:44] VITALS: BP 134/89
[2018-09-08] MEDS ORDERED: Lidocaine Patch REMOVE* 1 NOTE MISC PATCH OFF SCH (08:00)
== END 2018-09-08 00:54 | disposition home or self-care (01) ==
LOC: ED 16:19
DX: M54.9 Dorsalgia, unspecified (principal); Z88.2 Allergy status to sulfonamides; Z88.0 Allergy status to penicillin; Z87.891 Personal history of nicotine dependence
CPT/HCPCS: 36415; 72131; 80053; 85025; 86140; 96372; 96374; 96375; 99284; A9270-GY; J1170; J2270; J2405

== ENCOUNTER 2018-09-09 10:26 | Observation (INO) | payer OTHER ==
--- NOTE | 2018-09-09 12:23 | ED ---
Back Pain - HPI Summary HPI Summary: Patient is a 58-year-old female who presents emergency department for uncontrollable back pain and worsening weakness of her left foot. Patient is a history of chronic back pain and has had surgery remotely. Patient has been having exacerbation of pain over the last several days. She was seen in the ER 2 days ago. She is currently taking morphine for pain at home. Patient was seen by pain management today, Dr. Greer, who was concerned with patient's excruciating pain as well as some new weakness of her left foot. He referred patient to the ER and requested an MRI and possible admission for pain control. Patient denies bowel or bladder incontinence or retention, saddle paresthesias. Denies fever or chills, chest pain, shortness breath, abdominal pain, urinary symptoms. Symptoms are moderate in severity. Movement makes symptoms worse. Nothing makes symptoms better. - History of Current Complaint Chief Complaint: EDGeneral Stated Complaint: BACK PIAN Time Seen by Provider: 09/09/18 12:19 Hx Obtained From: Patient Hx Last Menstrual Period: Sep 2012 (currently going through menopause) Pain Intensity: 9 - Allergies/Home Medications Allergies/Adverse Reactions: Allergies Allergy/AdvReac Type Severity Reaction Status Date / Time azathioprine Allergy Severe Anaphylatic Verified 09/09/18 09:47 Shock celecoxib [From Celebrex] Allergy Severe Anaphylatic Verified 09/09/18 09:47 Shock Penicillins Allergy Severe Anaphylatic Verified 09/09/18 09:47 Shock Sulfa (Sulfonamide Allergy Severe Anaphylatic Verified 09/09/18 09:47 Antibiotics) Shock infliximab [From Remicade] Allergy Unknown Unknown Verified 09/09/18 09:47 Reaction Details gluten Allergy GI Upset Verified 09/09/18 09:47 ENVIRONMENTAL Allergy Runny Nose Uncoded 09/09/18 09:47 Home Medications: Home Medications Docusate CAP* [Colace Cap*] 100 mg PO BID PRN 09/09/18 [History Confirmed ] EPINEPHrine [Epipen] 0.3 mg IM DAILY PRN 09/09/18 [History Confirmed 09/09/18] PMH/Surg Hx/FS Hx/Imm Hx Previously Healthy: Yes Endocrine/Hematology History: Reports: 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 Denies: Hx Diabetes Cardiovascular History: Reports: Hx Hypertension - CONTROL WITH MEDS, Other Cardiovascular Problems/Disorders - DVT IN LEG 30 YEARS AGO Denies: Hx Pacemaker/ICD Respiratory History: Reports: Hx Asthma, Hx Chronic Obstructive Pulmonary Disease (COPD) - YES ?, Other Respiratory Problems/Disorders - RECENT URI - NO PROBLEMS NOW GI History: Reports: Hx Crohn's Disease, Hx Gastroesophageal Reflux Disease - ACID REFLUX - PRN MEDS History: Denies: Hx Dialysis, Hx Renal Disease Musculoskeletal History: Reports: Hx Arthritis - GENERALIZED, Hx Back Problems - chronic low back pain Denies: Hx Osteoporosis Sensory History: Reports: Hx Contacts or Glasses Denies: Hx Hearing Aid Opthamlomology History: Reports: Hx Contacts or Glasses Neurological History: Reports: Other Neuro Impairments/Disorders - BALANCE ISSUES DUE TO NEUROPATHY IN BILATERAL FEET Psychiatric History: Denies: Hx Panic Disorder - Cancer History Cancer Type, Location and Year: "SMOLDERING MULTIPLE MYELOMA" Hx Chemotherapy: No Hx Radiation Therapy: No - Surgical History Surgery Procedure, Year, and Place: 1996 RESECTION OF COLON(LARGE PORTION OF LARGE INTESTINES, [place]. 2005 EXCISION OF VULVAR LESION RIGHT SIDE, [facility] [place]. 2011 DILATION CURETTAGE, HYSTEROSCOPY, POLYPECTOMY WITH CERVICAL BIOPSY, [facility] [place]. 2013 BILATERAL HIP REPLACEMENT, [place], [place]. 2014 LUMBAR DISCECTOMY, [place], [place] Hx Anesthesia Reactions: Yes - WOKE DURING ONE OF HIP SURGERY RELATED TO "MEDICATION PUSH" - Immunization History Date of Tetanus Vaccine: utd Date of Influenza Vaccine: utd Infectious Disease History: No Infectious Disease History: Reports: Hx Shingles Denies: Traveled Outside the in Last 30 Days - Family History Known Family History: Positive: Hypertension Negative: Diabetes - Social History Occupation: Employed Full-time Lives: Alone Alcohol Use: Weekly Alcohol Amount: 0-5 DRINKS Hx Substance Use: No Substance Use Type: Reports: None Hx Tobacco Use: No Smoking Status (MU): Former Smoker Type: Cigarettes Amount Used/How Often: 3 PPD Length of Time of Smoking/Using Tobacco: 13 YEARS Have You Smoked in the Last Year: No Review of Systems Constitutional: Negative Negative: Fever, Chills Cardiovascular: Negative Respiratory: Negative Gastrointestinal: Negative Genitourinary: Negative Positive: Other - Left sided back pain Positive: Weakness All Other Systems Reviewed And Are Negative: Yes Physical Exam Triage Information Reviewed: Yes Vital Signs On Initial Exam: Initial Vitals Temp Pulse Resp BP Pulse Ox 96.8 F 96 20 107/86 97 09/09/18 10:31 09/09/18 10:31 09/09/18 10:31 09/09/18 10:31 09/09/18 10:31 Vital Signs Reviewed: Yes Appearance: Positive: Pain Distress - Pt. sitting on each of bed. Appears in pain but nontoxic. Friend present. Skin: Positive: Warm, Dry Head/Face: Positive: Normal Head/Face Inspection Eyes: Positive: Normal, EOMI Neck: Positive: Supple Musculoskeletal: Positive: Other - Pain on palpation to left SI joint. Mild weakness with dorsiflexion of left great toe. Good pulses. Neurological: Positive: Normal, CN Intact II-III Psychiatric: Positive: Affect/Mood Appropriate Diagnostics - Vital Signs Vital Signs Temp Pulse Resp BP Pulse Ox 09/09/18 10:31 96.8 F 96 20 107/86 97 - Laboratory Lab Statement: Any lab studies that have been ordered have been reviewed, and results considered in the medical decision making process. Back Pain Course/Dx - Course Course Of Treatment: Patient presenting with increased back pain and new weakness to left foot. She is currently taking Gabapentin, morphine, Robaxin, prednisone. Dr. Greer for pain management recommended MRI and pain control. Patient was given several doses of IV Dilaudid with mild to moderate improvement pain. MRI reading per radiology: IMPRESSION: 1. POST SURGICAL CHANGES. 2. MILD DEGENERATIVE DISC DISEASE AND FACET OSTEOARTHRITIS DESCRIBED. Hospitalist was consutled for potential admission for pain constrol and neursx consult. I spoke with hospitalist, Dr. Anaya, who will consult on pt. [phone]: Dr. Anaya agrees to admission for pain control. - Diagnoses Differential Diagnosis/HQI/PQRI: Positive: Arthritis, Cauda Equina Syndrome, Compressive Cord Syndrome, Epidural Abscess, Fracture, Herniated Disc, Neoplasm , Strain, Sprain Provider Diagnoses: Disc herniation, Intractable low back pain Discharge - Sign-Out/Discharge Documenting (check all that apply): Patient Departure - Discharge Plan Condition: Stable Disposition: ADMITTED TO [facility] Referrals: Wilfredo Greene MD [Primary Care Provider] - - Billing Disposition and Condition Condition: STABLE Disposition: Admitted to [facility]
[2018-09-09] MEDS ORDERED: HYDROmorphone INJ* 2 MG/ML CARPUJECT SYRINGE IV SLOW PU ONE (12:38)
[2018-09-09] MEDS ORDERED: HYDROmorphone INJ1* 1 MG/ML SYRINGE ONE (12:57)
[2018-09-09] MEDS ORDERED: HYDROmorphone INJ1* 1 MG/ML SYRINGE IV ONE (13:00)
[2018-09-09] MEDS ORDERED: HYDROmorphone INJ1* 1 MG/ML SYRINGE IV SLOW PU ONE (14:45)
[2018-09-09] MEDS ORDERED: Ondansetron INJ* 2 MG/ML VIAL ONE (16:00)
[2018-09-09] MEDS ORDERED: Ondansetron INJ* 2 MG/ML VIAL IV ONE (16:05)
[2018-09-09] MEDS ORDERED: Methocarbamol TAB* 500 MG PO PRN (17:23)
[2018-09-09] MEDS ORDERED: Morphine ORAL.SOLN 10 mg* 2 MG/ML UDC 5 ml PO PRN (17:23)
[2018-09-09] MEDS ORDERED: Docusate CAP* 100 MG PO PRN (17:23)
[2018-09-09] MEDS: Dexamethasone IV* 4 MG/ML 1 ML (4 MG) IV SLOW PU SCH (19:55)
[2018-09-09] MEDS: Ondansetron INJ* 2 MG/ML VIAL IV PRN (19:59)
[2018-09-09] MEDS: HYDROmorphone INJ1* 1 MG/ML SYRINGE IV SLOW PU PRN (20:46)
[2018-09-09] MEDS: Enoxaparin(*) 40 MG/0.4 ML SYR SUBCUT SCH (22:17)
--- NOTE | 2018-09-09 22:55 | HP ---
CC: Dr. Greene; Dr. Morataya.* HISTORY AND PHYSICAL: DATE OF ADMISSION: 09/09/18 PRIMARY CARE PROVIDER: Dr. Greene. ONCOLOGIST: Dr. Morataya. CHIEF COMPLAINT: Left leg pain. HISTORY OF PRESENT ILLNESS: Ms. Garces is a 58-year-old female who has a history of chronic back pain for which she sees Dr. Greer in the Pain Clinic. She was seeing Dr. Greer on the day of admission for evaluation of a flare of now left leg pain. She states that she has been having pain since . However, since this past Saturday, the pain has been very severe. She does not recall any significant trauma or changes within her lifestyle that may have provoked this except for the fact that she drove back from [place] this Saturday prior to the starting and in addition being at doing more standing than usual. She describes the pain as being very severe. She describes some burning quality to it as well as numbness and stabbing. At Dr. Greer's office today, there was concern for weakness in the left first toe and for this reason she was sent to the emergency room for evaluation. The patient denies any incontinence of bowel or bladder. She states that she has been treating her pain with steroids as well as intermittently using tramadol versus Nucynta versus morphine IR. She states that the pain medications have not really helped with controlling her pain at all. PAST MEDICAL HISTORY: 1. Smoldering multiple myeloma. 2. Crohn's disease. 3. Inflammatory bowel disease-related arthritis. 4. Psoriasis. 5. Asthma. 6. Morbid obesity. 7. Hypertension. PAST SURGICAL HISTORY: 1. Bilateral hip replacements. 2. Lumbar spinal surgery. 3. Partial colon resection at the ileocecal valve. 4. Multiple D and Cs. MEDICATIONS: 1. Morphine sulfate IR 15 mg p.o. q.4 hours p.r.n. pain. 2. Norethindrone 5 mg p.o. daily. 3. Irbesartan 300 mg p.o. daily. 4. Spironolactone 25 mg p.o. daily. 5. Zofran ODT 4 mg p.o. q.6 hours p.r.n. nausea. 6. Magnesium oxide 400 mg p.o. daily. 7. Methocarbamol 500 mg p.o. t.i.d. p.r.n. spasm. 8. Colace 100 mg p.o. b.i.d. p.r.n. constipation. 9. Diltiazem CD 120 mg p.o. daily. 10. Methylprednisolone 24 mg p.o. daily. 11. Advair 250/50 one puff inhaled daily p.r.n. shortness of breath. 12. EpiPen as needed. 13. Vitamin B12 of 1000 mcg IM monthly. 14. IVIG monthly. ALLERGIES: 1. AZATHIOPRINE. 2. CELEBREX. 3. PENICILLIN. 4. REMICADE. 5. GLUTEN. 6. Environmental. FAMILY HISTORY: Positive for father having a history of coronary artery disease with his first DE at the age of 64. SOCIAL HISTORY: The patient is a former smoker. She previously smoked 2 to 3 packs per day for 11 years. She quit in 1985. She drinks alcohol on occasion. She works at [employer]. She is not . She has no children. She indicates that her sister, Cristel Shannon, is her health care proxy. REVIEW OF SYSTEMS: A complete 11-systems review of systems was obtained. Pertinent positives and negatives are as per HPI. In addition, the patient also complains of nausea and vomiting over the last couple of days and lack of bowel movement over the 2 days which is abnormal. She also admits to vaginal bleeding which has been an issue and she is due for a D and C. PHYSICAL EXAMINATION GENERAL: The patient is a well-developed, morbidly obese, middle-aged female seen lying in the stretcher, in no acute distress. VITAL SIGNS: Blood pressure 130/78, pulse 91, respirations 18, temp 96.8. HEENT: Pupils are pinpoint. Extraocular muscles are intact. Oropharynx is clear. Oral mucosa is moist. There is no submandibular, cervical, or supraclavicular adenopathy. Thyroid is not enlarged. No thyroid nodules are noted. PULMONARY: Lungs are clear to auscultation bilaterally. CARDIAC: Normal S1 and S2. Regular rate and rhythm. I do not appreciate any murmurs. There is trace bilateral lower extremity pitting edema, left worse than the right. ABDOMEN: Bowel sounds present. Abdomen is obese, soft, nontender, and nondistended. MUSCULOSKELETAL: There is no cyanosis or clubbing of the digits. Range of motion is not tested due to the patient's complaints of severe pain. SKIN: Warm and dry. There are no rashes. NEUROLOGIC: Cranial nerves II through XII are grossly intact. Sensation is intact to light touch throughout. Strength appears to be normal and generally symmetric. PSYCH: The patient is alert, she is oriented x3. Affect appears appropriate. LABORATORY DATA: None. MRI of the lumbar spine reveals postsurgical changes and mild degenerative disk disease and facet osteoarthritis. ASSESSMENT AND PLAN: Ms. Garces is a 58-year-old female with a history of chronic back pain who presents to the emergency room with several days of severe left leg pain, is admitted for pain control. 1. Severe left leg pain. At this point, the MRI does not reveal any clear source of the pain. I am suspicious that the standing at the she was at and riding in a car for prolonged period of time may have exacerbated some underlying sciatica. At this point, the patient will receive Decadron 4 mg IV daily. We will initiate IV Dilaudid p.r.n. She will ultimately need recommendations on how to treat her pain. She was not using her pain medications routinely at home, so perhaps morphine IR can be utilized to control her pain if it is taken regularly. PT evaluation has been ordered. 2. Hypertension. The patient will be continued on an equivalent ARB. 3. History of paroxysmal atrial fibrillation. The patient was admitted in the fall of 2018 with atrial fibrillation. She has since been taken off Xarelto, but continues on diltiazem CD and this will be continued. 4. Asthma. There are no signs of exacerbation at this time. We will monitor for symptoms. 5. Smoldering multiple myeloma. There is nothing to do at this time. 6. Crohn's disease. This is not an issue currently. 7. DVT prophylaxis. According to the Adult Thrombosis Prophylaxis Risk Factor Assessment Guide, the patient has a total risk factor score of 5 making her the highest risk. Lovenox 40 mg subcutaneous daily will be utilized as DVT prophylaxis. 8. Code status is full. TIME SPENT: Sixty five minutes was spent admitting this patient. [id number]/[id number] #: [id number] MTDD
[2018-09-10] MEDS: HYDROmorphone INJ1* 1 MG/ML SYRINGE IV SLOW PU PRN ×3 (04:00→20:18)
[2018-09-10] MEDS: Ondansetron INJ* 2 MG/ML VIAL IV PRN ×3 (04:03→20:12)
[2018-09-10] MEDS ORDERED: NORETHINDRONE 5 MG PO SCH (09:00)
[2018-09-10] MEDS: Magnesium Oxide TAB* 400 MG PO SCH (10:19)
[2018-09-10] MEDS: Spironolactone TAB* 25 MG PO SCH (10:20)
[2018-09-10] MEDS: Diltiazem CD CAP* 120 MG PO SCH (10:27)
[2018-09-10] MEDS: Losartan TAB* 25 MG PO SCH (10:27)
[2018-09-10] MEDS: Dexamethasone IV* 4 MG/ML 1 ML (4 MG) IV SLOW PU SCH (10:51)
[2018-09-10] MEDS ORDERED: predniSONE TAB* 10 MG PO ONE (11:24)
[2018-09-10] MEDS: Gabapentin CAP(*) 100 MG PO SCH ×3 (12:24→21:38)
--- NOTE | 2018-09-10 14:32 | PN ---
Subjective Date of Service: 09/10/18 Interval History: Ms. Garces is feeling slightly better this morning. She has minimal pain on exam, but feels as though the pain will become worse throughout the day as she is more mobile. She reports the Dilaudid is effective in relieving pain. She is very concerned that she has not been started on gabapentin per recommendations from Dr. Greer. She states she has been on steroids since July and had relief at first, but when her dose was titrated down she experienced worsening pain. She does think that her recent activity has exacerbated her pain. She has numbness to bilat feet on plantar surface, but states this is her baseline. She has new numbness and tingling to the remainder of the left foot. She denies CP, SOB, N/V/D. Family History: Unchanged from Admission Social History: Unchanged from Admission Past Medical History: Unchanged from Admission Objective Active Medications: Diltiazem HCl (Cardizem Cd Cap*) 120 mg PO DAILY MARYJANE Docusate Sodium (Colace Cap*) 100 mg PO BID PRN CONSTIPATION Enoxaparin Sodium (Lovenox(*)) 40 mg SUBCUT Q24H MARYJANE Gabapentin (Neurontin Cap(*)) 100 mg PO TID MARYJANE Hydromorphone HCl (Dilaudid Inj1s*) 1 mg IV SLOW PU Q4H PRN PAIN Losartan Potassium (Cozaar Tab*) 100 mg PO DAILY MARYJANE Magnesium Oxide (Magox 400 Tab*) 400 mg PO DAILY MARYJANE Methocarbamol (Robaxin Tab*) 500 mg PO TID PRN PAIN Morphine Sulfate (Morphine Oral.Soln 10 Mg*) 15 mg PO Q4H PRN PAIN Pto: Norethindrone 5 (Mg) 5 mg PO QAM MARYJANE Ondansetron HCl (Zofran Inj*) 4 mg IV Q6H PRN NAUSEA Spironolactone (Aldactone Tab*) 25 mg PO DAILY [facility] Vital Signs - 8 hr 09/10/18 09/10/18 09/10/18 07:10 07:35 11:01 Temperature 98.2 F 98.2 F 98.9 F Pulse Rate 96 96 101 Respiratory 20 20 18 Rate Blood Pressure 162/75 162/75 179/89 (mmHg) O2 Sat by Pulse 98 98 98 Oximetry 09/10/18 09/10/18 11:13 12:24 Temperature 98.9 F Pulse Rate 101 Respiratory 18 17 Rate Blood Pressure 179/89 (mmHg) O2 Sat by Pulse 98 Oximetry Oxygen Devices in Use Now: None Appearance: Middle aged female sitting in bed in NAD Eyes: No Scleral Icterus Ears/Nose/Mouth/Throat: Mucous Membranes Moist Neck: NL Appearance and Movements; NL JVP, Trachea Midline Respiratory: Symmetrical Chest Expansion and Respiratory Effort, Clear to Auscultation Cardiovascular: NL Sounds; No Murmurs; No JVD, - - Irregular rhythm Abdominal: NL Sounds; No Tenderness; No Distention Extremities: No Edema, No Clubbing, Cyanosis Skin: No Rash or Ulcers Neurological: Alert and Oriented x 3, - - RLE strength 5/5; L foot plantar flexion and knee extension 5/5; L foot dorsiflexion and great toe extension 2/5 Lines/Tubes/Other Access: Clean, Dry and Intact Peripheral IV Nutrition: Taking PO's Assess/Plan/Problems-Billing Assessment: Ms. Garces is a 58 yo female with PMH of chronic back pain (follows Dr. Greer at the pain clinic), HTN, morbid obesity, and Crohn's; who presented to the ED, after being referred by the pain clinic, for c/o increased left leg pain and was admitted for pain management. - Patient Problems (1) Left leg pain Code(s): M79.605 - PAIN IN LEFT LEG Comment: - Decreased strength on dorsiflexion and great toe extension, correlating with an issue at L5 - Has been treated with steroids since July with little improvement - MRI notes mild broad-base disc bulge and mild narrowing at L4-L5 and minimal broad-base disc bulge at L5-S1 - Spoke with Dr. Greer who recommended initiating gabapentin at 100mg TID, increasing to 200mg TID tomorrow and 300mg TID the following day; also recommended tapering steroids - Appreciate Neurosurgery consult per Dr. Greer's recommendation - Continue Dilaudid - Start gabapentin 100mg TID today and will order 200mg TID starting tomorrow - Start prednisone 30mg today (most recently on 24mg methylprednisolone, equivalent to 30mg prednisone) and begin tapering slowly; will decrease to 20mg starting tomorrow (2) HTN (hypertension) Code(s): I10 - ESSENTIAL (PRIMARY) HYPERTENSION Comment: - Hypertensive today with SBP up to 170s, though she did not take her medications yesterday - Continue losartan, spironolactone (3) Paroxysmal A-fib Code(s): I48.0 - PAROXYSMAL ATRIAL FIBRILLATION Comment: - Rate controlled - Has been off anticoagulation and does not want to resume - Continue diltiazem (4) DVT prophylaxis Comment: - Lovenox (5) Full code status Code(s): Z78.9 - OTHER SPECIFIED HEALTH STATUS Comment: Status and Disposition: Observation for continued pain management. Anticipate d/c home when pain is managed. Attending: Leslie Norton
--- NOTE | 2018-09-10 21:05 | CONS ---
CONSULTATION REPORT: DATE OF CONSULT: 09/10/18 HISTORY OF PRESENT ILLNESS: Patient is a very pleasant 58-year-old female with history of obesity, multiple myeloma, Crohn disease, psoriasis, asthma, and hypertension, who is status post lumbar spine surgery few years ago in a [facility] in [facility] for possible L4-5 laminectomy. Patient was followed by Dr. Greer and was scheduled for epidural steroid injection. She reports that she started to have an exacerbation of her back pain as well as left lower extremity pain since once she drove back from [place]. The pain gradually got better, but a few days ago on Saturday, she drove back again from [place] and the next morning she experienced significant back pain radiating to the left lower extremity to the point that she was not able to ambulate. Patient visited the emergency room where she was treated for her pain and when she followed up with Dr. Greer on Saturday, she had difficulty ambulating and was found to have weakness in the dorsal flexion of her foot and EHL. Dr. Greer referred the patient to the emergency room and MRI revealed far lateral left L4-5 disk herniation. Requested to see the patient because of the MRI findings. The patient reports that she has been on steroids and Dilaudid and this has helped with her pain. She is able to ambulate with a cane. She reports that she does have pain radiating to the left lower extremity all the way down to her left ankle. She also has weakness on the left lower extremity and dorsiflexion of the left foot and EHL, but she feels that this is improving since being to the hospital. She reports that she ambulates with difficulty. She has to use a cane and this is at her baseline. She is able to ride her bicycle in the baseline but has very minimal mobility. She reports that she lost weight in the past and she regained in the last 1 or 2 years because of difficulty with exercise. Patient denies any urinary or GI incontinence. 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 Patient is single, lives by herself. She has no children. 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 PAST SURGICAL HISTORY: Bilateral hip replacements, lumbar spine surgery as stated above, partial colon resection, multiple D and Cs. MEDICATIONS: The patient is on: 1. Morphine sulfate IR 15 mg. 2. Norethindrone. 3. Irbesartan. 4. Spironolactone. 5. Zofran. 6. Magnesium oxide. 7. Methocarbamol. 8. Colace. 9. Diltiazem. 10. Methylprednisolone. 11. Advair. 12. EpiPen. 13. Vitamin B12. 14. IVIG monthly. ALLERGIES: AZATHIOPRINE, CELEBREX, PENICILLIN, REMICADE, GLUTEN, ENVIRONMENT. FAMILY HISTORY: Coronary artery disease in father. SOCIAL HISTORY: Tobacco negative. The patient is a former smoker. Alcohol occasionally. Recreational drug use negative. Patient reports that her sister , Cristel Shannon, is her healthcare proxy. PHYSICAL EXAM: The patient is in no acute distress. She is having difficulty ambulating and she has to use a cane. She has no tenderness to palpation of the thoracic or lumbar spine. She has range of motion of the cervical spine. Her previous wound clean and dry, healed very well. She is awake, alert, and oriented x3. Pupils are equal and reactive. Cranial strength II through XII are grossly intact. Motor 4-5/5 in all extremities with the exception of the left foot dorsiflexion and EHL, which is 3-4/5. Sensory grossly intact to light touch except decreased sensation in the right S1 distribution and the left L5 distribution. Patient reports that both areas were having decreased sensation for approximately the last 3 years when she was diagnosed with peripheral neuropathy, but she felt that the numbness of her left big toe has been progressively getting worse over the last weekend. Deep tendon reflex is + 1 bilaterally. No clonus. No Babinski. Webster's negative. Straight leg raise test positive on the left, negative on the right. DIAGNOSTIC STUDIES/LAB DATA: The patient had MRI of her lumbar spine on revealing postoperative changes at the L4-5 with left L4-5 bilateral disk herniation with neuroforaminal stenosis. The patient had also CT scan of the lumbar spine on 09/07/18 revealed degenerative disk disease with left lateral disk herniation at L4-5. ASSESSMENT: The patient is a very pleasant 58-year-old female with multiple medical history with chronic complaints of back pain with recent exacerbation of back pain and left lower extremity pain with MRI finding consistent with left L4-5 lateral disk herniation. PLAN: Patient at this point is improving with use of Dilaudid and steroids. Discussed MRI imaging and possible treatment options including conservative treatment, epidural steroid injections or intraforaminal injections, physical therapy and surgical intervention in the form of left far lateral diskectomy. I explained to the patient in details risks and benefits of the procedure as well as expectation, limitations, and possible complications with complications including but not limited to bleeding, infection, risk of injury to adjacent structures, paralysis, , need for additional procedures, anesthesia risk, stroke, blindness, cancer, instability, additional level of disease, spinal fluid leak, neuropathy. Patient understands and would like to opt for conservative treatment and avoid surgical intervention at this time. She understands risks and benefits of conservative approach including potential for progressive neurovascular deficits and paralysis. Patient will think again and notify us if she would like to proceed with surgical intervention. Thank you for allowing us to participate in the care of this patient. Please do not hesitate to contact our office in case if you have any further questions or concerns regarding the care of this patient. [id number]/[facility] #: [id number] AGUSTINA
[2018-09-10] MEDS: Enoxaparin(*) 40 MG/0.4 ML SYR SUBCUT SCH (22:03)
[2018-09-11] MEDS: HYDROmorphone INJ1* 1 MG/ML SYRINGE IV SLOW PU PRN ×2 (08:57→15:04)
[2018-09-11] MEDS: Ondansetron INJ* 2 MG/ML VIAL IV PRN ×3 (08:58→21:18)
[2018-09-11] MEDS ORDERED: Benzonatate CAP* 100 MG PO PRN (09:00)
[2018-09-11] MEDS ORDERED: Acetaminophen TAB* 325 MG PO PRN (09:00)
[2018-09-11] MEDS: Diltiazem CD CAP* 120 MG PO SCH ×2 (09:03→10:22)
[2018-09-11] MEDS: Spironolactone TAB* 25 MG PO SCH (09:03)
[2018-09-11] MEDS: Magnesium Oxide TAB* 400 MG PO SCH (09:03)
[2018-09-11] MEDS: predniSONE TAB* 20 MG PO SCH (09:04)
[2018-09-11] MEDS: Losartan TAB* 25 MG PO SCH ×2 (09:04→10:22)
[2018-09-11] MEDS: Gabapentin CAP(*) 100 MG PO SCH ×3 (09:04→20:40)
[2018-09-11] MEDS: NORETHINDRONE 5 MG PO SCH (09:07)
[2018-09-11] MEDS ORDERED: guaiFENesin ER TAB 600 MG ONE (09:09)
[2018-09-11] MEDS: guaiFENesin ER TAB 600 MG PO SCH ×2 (09:18→20:41)
[2018-09-11] MEDS: Acetaminophen TAB* 325 MG PO SCH ×2 (09:23→17:44)
--- NOTE | 2018-09-11 12:45 | PN ---
Progress Note - Progress Note Date of Service: 09/11/18 Note: Emmanuelle is an established pt with our practice and sees Dr. Gardner. She is admitted for pain control due to back pain and wanted to discuss her vaginal bleeding. She had a D&C in 2015 for PMB with pathology showing benign endometrial polyps, no e/o hyperplasia or dysplasia. More recently, she has had intermittent vaginal bleeding for at least 6mo. She was seen by Dr. Gardner last summer and recommended to return for sono and possible endo bx but she cancelled that appt. She finally came back to the office in Aug and had a sono which showed an endometrial thickness of 1cm and 2 small fibroids <3cm; one subserosal and one intramural but appearing to impinge on the endometrial cavity. She scheduled a D&C with Dr. Gardner for Sep 18 but cancelled that yesterday because she wants to deal with her back issues first. She says she started bleeding again around and took Aygestin prescribed by Dr. Gardner for about 14 days but when she stopped she started bleeding again so she restarted the aygestin. She only had very light bleeding until last night when she soaked through 1 regular pad overnight. This morning she has had the same pad on for >4hrs and hasn't had to change it yet. She believes that initiation of steroids to manage her back pain causes her to have vaginal bleeding. She is not on any anticoagulants. We discussed the bleeding and at this point since it is not very heavy I do not think she needs to increase the aygestin. If it becomes heavier that it could be increased. I emphasized the importance of endometrial sampling to r/o cancerous or precancerous cells. She seems very focused on her back issues right now and is opposed to trying to do any sampling until her pain improves. She saw Dr. Molina yesterday and his note said that at the time she preferred conservative management and they were not considering surgery. However, today the patient insists that she needs surgery urgently, probably before she leaves the hospital because she is unable to decrease her current pain meds without severe pain. I mentioned that there might be a possibility of trying to combine endometrial sampling with the back surgery as it would minimize her anesthesia exposure and allow for earlier sampling but she absolutely refuses to consider that because she doesn't want to risk interfering with the back surgery (I am not even sure if it would be possible due to different positioning for the surgery). I reiterated the importance of endometrial sampling to r/o cancer/precancer but that it is ultimately her choice in regards to what she chooses to do when. I will update Dr. Gardner as to her situation and if she is still in the hospital when he is transportation program director again he should be able to stop by to see her. Please call with further questions or concerns.
--- NOTE | 2018-09-11 14:20 | PN ---
Subjective Date of Service: 09/11/18 Interval History: Parisnet complains of consistent pain in LLE radiating down to foot with accompanying numbness and tingling. Patient States that the IV pain medication helps but the pain again soon becomes unbearable until she gets it again. Patient denies saddle anesthesia, bowel/bladder incontinence. Patient has weakness in her left leg. Patient denies CP, SOB, F/C, N/V, abdominal pain, diarrhea, dysuria, or other pain. Family History: Unchanged from Admission Social History: Unchanged from Admission Past Medical History: Unchanged from Admission Objective Active Medications: Acetaminophen (Tylenol Tab*) 975 mg PO Q8H [facility] Last Admin: 09/11/18 09:23 Dose: 975 mg Benzonatate (Tessalon Cap*) 100 mg PO BID PRN PRN Reason: COUGH Diltiazem HCl (Cardizem Cd Cap*) 120 mg PO DAILY@2100 [facility] Docusate Sodium (Colace Cap*) 100 mg PO BID PRN PRN Reason: CONSTIPATION Enoxaparin Sodium (Lovenox(*)) 40 mg SUBCUT Q24H [facility] Last Admin: 09/10/18 22:03 Dose: Not Given Gabapentin (Neurontin Cap(*)) 200 mg PO TID [facility] Last Admin: 09/11/18 09:04 Dose: 200 mg Guaifenesin (Mucinex*) 1,200 mg PO BID [facility] Last Admin: 09/11/18 09:18 Dose: 1,200 mg Hydromorphone HCl (Dilaudid Inj1s*) 1 mg IV SLOW PU Q4H PRN PRN Reason: PAIN Last Admin: 09/11/18 08:57 Dose: 1 mg Losartan Potassium (Cozaar Tab*) 100 mg PO DAILY@2100 [facility] Magnesium Oxide (Magox 400 Tab*) 400 mg PO DAILY [facility] Last Admin: 09/11/18 09:03 Dose: 400 mg Methocarbamol (Robaxin Tab*) 500 mg PO TID PRN PRN Reason: PAIN Morphine Sulfate (Morphine Oral.Soln 10 Mg*) 15 mg PO Q4H PRN PRN Reason: PAIN Pto: Norethindrone 5 (Mg) 5 mg PO QAM [facility] Last Admin: 09/11/18 09:07 Dose: 5 mg Ondansetron HCl (Zofran Inj*) 4 mg IV Q6H PRN PRN Reason: NAUSEA Last Admin: 09/11/18 08:58 Dose: 4 mg Prednisone (Deltasone Tab*) 20 mg PO DAILY [facility] Last Admin: 09/11/18 09:04 Dose: 20 mg Spironolactone (Aldactone Tab*) 25 mg PO DAILY [facility] Last Admin: 09/11/18 09:03 Dose: 25 mg Vital Signs - 8 hr 09/11/18 09/11/18 09/11/18 08:09 08:57 09:04 Temperature 98.3 F Pulse Rate 61 Respiratory 16 18 18 Rate Blood Pressure 131/82 (mmHg) O2 Sat by Pulse 97 Oximetry 09/11/18 09:57 Temperature Pulse Rate Respiratory 16 Rate Blood Pressure (mmHg) O2 Sat by Pulse Oximetry Oxygen Devices in Use Now: None Appearance: Patient is a 58yo female who appears stated age and is sitting in th bed in [facility]. Eyes: No Scleral Icterus, PERRLA Ears/Nose/Mouth/Throat: NL Teeth, Lips, Gums, Clear Oropharnyx, Mucous Membranes Moist Neck: NL Appearance and Movements; NL JVP, Trachea Midline Respiratory: Symmetrical Chest Expansion and Respiratory Effort, Clear to Auscultation Cardiovascular: NL Sounds; No Murmurs; No JVD, RRR, No Edema Abdominal: NL Sounds; No Tenderness; No Distention, No Hepatosplenomegaly Lymphatic: No Cervical Adenopathy Extremities: No Edema, No Clubbing, Cyanosis Skin: No Rash or Ulcers, No Nodules or Sclerosis Neurological: Alert and Oriented x 3, - - 4/5 strength in distal LLE. Preserved in RLE. Decreased sensation to light touch in LLE. Assess/Plan/Problems-Billing Assessment: Ms. Garces is a 58 yo female with PMH of chronic back pain (follows Dr. Greer at the pain clinic), HTN, morbid obesity, and Crohn's; who presented to the ED, after being referred by the pain clinic, for c/o increased left leg pain and was admitted for pain management and neurosurgical consultation. - Patient Problems (1) Left leg pain Current Visit: Yes Status: Acute Code(s): M79.605 - PAIN IN LEFT LEG SNOMED Code(s): 440455677 Comment: - Decreased strength on dorsiflexion and great toe extension, correlating with an issue at L5 - Has been treated with steroids since July with little improvement - MRI notes mild broad-base disc bulge and mild narrowing at L4-L5 and minimal broad-base disc bulge at L5-S1 - Appreciate Neurosurgery consult, patient is opting for surgery pending neurosurgical reevaluation. - Continue Dilaudid and oral morphine. Attempt to taper morphine when able. - Gabapentin 200mg TID, increase to 300 TID tomorrow - Taper steroids - Scheduled tylenol. - No alarm symptoms. (2) Abnormal uterine bleeding Current Visit: Yes Status: Acute Code(s): N93.9 - ABNORMAL UTERINE AND VAGINAL BLEEDING, UNSPECIFIED SNOMED Code(s): 44512841241021 Comment: - Related to known polyps - Appreciate OBGYN input, was scheduled for D/C this month which is now on hold - Not hemodynamically significant - Continue progesterone supplementation - OBGYN recommends outpatient endometrial sampling to rule out malignancy. (3) Cough Current Visit: Yes Status: Acute Code(s): R05 - COUGH SNOMED Code(s): 20479404 Comment: - Persistent cough after viral infection. Normal lung exam - CXR to assess for pneumonia - Symptomatic tratment. (4) Myeloma Current Visit: Yes Status: Acute Code(s): C90.00 - MULTIPLE MYELOMA NOT HAVING ACHIEVED REMISSION SNOMED Code(s): 625900306 Comment: - Smouldering - Likely cause of peripheral neuropathy - Follow up with oncology outpatient - Continue IVIG outpatient. (5) Crohns disease Current Visit: Yes Status: Acute Code(s): K50.90 - CROHN'S DISEASE, UNSPECIFIED, WITHOUT COMPLICATIONS SNOMED Code(s): 37456254 Comment: - Frequent diarrhea, otherwise not active issue. (6) HTN (hypertension) Current Visit: No Status: Acute Code(s): I10 - ESSENTIAL (PRIMARY) HYPERTENSION SNOMED Code(s): 77108959 Comment: - Continue losartan, spironolactone, and diltiazem. (7) DVT prophylaxis Current Visit: No Status: Acute Code(s): MZQ4421 - SNOMED Code(s): 498082801 Comment: - Lovenox (8) Full code status Current Visit: No Status: Acute Code(s): Z78.9 - OTHER SPECIFIED HEALTH STATUS SNOMED Code(s): 958396558 Comment: Status and Disposition: Observation for continued pain management. Anticipate d/c home when pain is managed.
--- NOTE | 2018-09-11 18:02 | PN ---
Progress Note - Progress Note Date of Service: 09/11/18 SOAP: Subjective: [Patient feeling better today with IV and PO pain medication. Low back to LLE pain persists although controlled. States that when IV medication is stopped, pain becomes unbearable. She is able to get up and ambulate with current pain management. Left foot weakness. Pt states Dr. Greer saw her today and they discussed transitioning to PO meds and increasing gabapentin. ] Objective: [ Vital Signs: Temp Pulse Resp BP Pulse Ox 98.7 F 70 16 153/81 98 09/11/18 11:21 09/11/18 11:21 09/11/18 17:03 09/11/18 11:21 09/11/18 11:21 General: Alert and sitting up at bedside comfortably. Neuro: Sensation intact. Left EHL weakness 4/5. ] Assessment: [Pain better controlled today. She would like to continue with conservative management for now and will consider surgical intervention only if she fails to improve with other therapies and medication. ] Plan: [1. PO pain management. 2. Neurosurgery is available if she would like to reconsider surgery. ] <Davida Goldstein - Last Filed: 09/11/18 18:04> - Progress Note SOAP: Patient seen . Agree with above. Patient feels that her pain is better controlled and her LLE weakness significantly improved. Patient would like to continue with conservative approach for now. May follow up in the office in 1 week, Will be always available if needed. Allan Forrest MD <Janene Forrest - Last Filed: 09/12/18 01:08>
[2018-09-11] MEDS: Enoxaparin(*) 40 MG/0.4 ML SYR SUBCUT SCH (20:33)
[2018-09-11] MEDS ORDERED: Diltiazem CD CAP* 120 MG PO SCH (21:00)
[2018-09-11] MEDS ORDERED: Losartan TAB* 25 MG PO SCH (21:00)
[2018-09-11] MEDS: HYDROmorphone TAB* 4 MG PO PRN (21:16)
[2018-09-12] MEDS: HYDROmorphone TAB* 4 MG PO PRN ×2 (03:06→11:17)
[2018-09-12] MEDS: Ondansetron TAB* 4 MG PO PRN ×2 (03:07→11:17)
[2018-09-12] MEDS: Acetaminophen TAB* 325 MG PO SCH ×2 (03:08→09:47)
[2018-09-12 08:38] LABS: ABS Basophils 0 10^3/ul (0-0.2); ABS Eosinophils 0.1 10^3/ul (0-0.6); ABS Lymphocytes 3.4 10^3/ul (1.0-4.8); ABS Monocytes 1.3 10^3/ul (0-0.8); ABS Neutrophils 11.9 10^3/ul (1.5-7.7); ABS Nucleated RBC 0 10^3/ul; Eosinophil % 0.7 %; Hematocrit 40 % (35-47); Hemoglobin 13.1 g/dl (12.0-16.0); Lymphocyte % 20.2 %; Mean Corpuscular HGB Conc 33 g/dl (31-36); Mean Corpuscular Hemoglobin 30 pg (27-31); Mean Corpuscular Volume 91 fL (80-97); Mean Platelet Volume 7.4 fL (7.4-10.4); Nucleated Red Blood Cells % 0; Platelet Count 305 10^3/ul (150-450); Red Blood Count 4.36 10^6/ul (4.00-5.40); Red Cell Distribution Width 15 % (10.5-15); White Blood Count 16.7 10^3/ul (3.5-10.8)
[2018-09-12 08:56] LABS: BUN/Creatinine Ratio 28.7 (8-20); Calcium 9.2 mg/dL (8.6-10.3); Potassium 4.5 mmol/L (3.5-5.0)
[2018-09-12] MEDS: Gabapentin CAP(*) 300 MG PO SCH ×2 (09:47→14:04)
[2018-09-12] MEDS: Spironolactone TAB* 25 MG PO SCH (09:48)
[2018-09-12] MEDS: Magnesium Oxide TAB* 400 MG PO SCH (09:48)
[2018-09-12] MEDS: NORETHINDRONE 5 MG PO SCH (09:48)
[2018-09-12] MEDS: predniSONE TAB* 20 MG PO SCH (09:48)
[2018-09-12] MEDS: guaiFENesin ER TAB 600 MG PO SCH (09:48)
[2018-09-12] MEDS ORDERED: Calcium Carbonate CHEW TAB* 500 MG (TUMS) PO PRN (13:11)
[2018-09-12] MEDS ORDERED: Pantoprazole TAB * 40 MG TAB PO SCH (14:00)
[2018-09-12 14:29] VITALS: BP 116/67
--- NOTE | 2018-09-14 02:00 | DS ---
CC: Dr. Wilfredo Greene * DISCHARGE SUMMARY: DATE OF ADMISSION: 09/09/18 DATE OF DISCHARGE: 09/12/18 PRIMARY CARE PROVIDER: Dr. Wilfredo Greene. MY ATTENDING WHILE IN THE HOSPITAL: Dr. Leslie Norton.* (DICTATED BY KAREN KRUEGER) PRIMARY DISCHARGE DIAGNOSES: 1. Left leg radiculopathy at the L4 level. 2. Left lateral disk herniation at L4-L5. 3. Left leg pain. SECONDARY DISCHARGE DIAGNOSES: 1. Smoldering multiple myeloma. 2. Crohn's disease. 3. Inflammatory bowel disease-related arthritis. 4. Psoriasis. 5. Asthma. 6. Hypertension. STUDIES DONE WHILE IN THE HOSPITAL: Lumbar spine MRI from 09/09/18 read as postsurgical changes, mild degenerative disk disease, and facet osteoarthritis of the L4-L5 level. There is a laminectomy defect with broad based disk bulge and moderate hypertrophic changes of the facet joints, mild spinal canal narrowing, and moderate neuroforaminal narrowing on the left side. Chest x-ray read as mild bilateral subsegmental atelectasis, findings most consistent with COPD. MEDICATIONS AT DISCHARGE: 1. Advair 50/250, 1 puff inhalation daily as needed. 2. Vitamin B12 1000 mcg IM monthly. 3. Spironolactone 25 mg p.o. daily. 4. Irbesartan 300 mg p.o. daily. 5. IVIG 5 g IV monthly. 6. Magnesium oxide 400 mg p.o. daily. 7. Norethindrone 5 mg p.o. daily. 8. Diltiazem 120 mg p.o. daily. 9. Robaxin 500 mg p.o. t.i.d. as needed. 10. Epinephrine 0.3 mg IM daily as needed. 11. Docusate 100 mg p.o. b.i.d. as needed. 12. Tylenol 975 mg p.o. q.8 hours as scheduled. 13. Docusate 100 mg p.o. b.i.d. as needed. 14. Gabapentin 300 mg p.o. t.i.d. 15. Guaifenesin 1200 mg p.o. b.i.d. 16. Dilaudid 4 mg p.o. q.4 hours as needed. 17. Prednisone 20 mg p.o. daily with taper over 2 weeks. 18. Calcium carbonate 500 mg p.o. q.4 hours as needed. 19. Pantoprazole 40 mg p.o. daily. 20. Ondansetron 4 mg p.o. q.6 hours as needed. HOSPITAL COURSE: This is a brief summary of the patient's presentation. For more details, please see the history and physical from Dr. Cherise Anaya on 04/20. In brief, the patient is a 58-year-old female with past medical history significant for the above, who presents to the emergency department after being seen by Dr. Greer in the pain clinic with a flare of left leg pain with associated weakness without provoking factor but described the pain as burning with numbness and stabbing down her left leg without any symptoms consistent with cauda equina syndrome. Patient had been on steroids on and off and was using morphine immediate release, but her pain was still uncontrolled and unbearable at that time. Patient was started on IV Dilaudid, IV Decadron, and was admitted to the hospital and seen in consultation by Dr. Janene Forrest of Neurosurgery, who interpreted the MRI as likely showing as having disk protrusion, likely causing her pain. The patient was offered surgery, which she declined opting for conservative treatment. The patient was seen in consultation by Physical Therapy. The patient was able to be weaned from her IV Dilaudid to p.o. Dilaudid with moderate control of her pain. Patient was also started on gabapentin as above and had her steroids begin to be tapered, initially starting at 30 mg prednisone daily and being tapered down to 20 on the day of discharge. The patient was seen in consultation by Dr. Greer of the pain clinic, who recommended and agreed with the above plan. The patient was able to work with PT at a level that we allow her to function independently at home and the patient was stable and amenable for discharge on 09/12/18. Of note, patient during her hospitalization had increased vaginal bleeding from known what she describes as vaginal polyps and was scheduled to undergo D and C later this month. Patient was seen in consultation by Dr. Grove, who recommended endometrial biopsy, which the patient declined at this time. Patient states she will follow up with Dr. Gardner as needed for this issue. PHYSICAL EXAM ON THE DAY OF DISCHARGE: General: The patient is a 58-year-old female who appears stated age and sitting comfortable in bed, in no acute distress. Vital Signs: At the time of discharge, temperature 98.0, pulse rate 95, respiratory rate 18, oxygen saturation 96% on room air, blood pressure 116/ 67. HEENT: Head normocephalic, atraumatic. Sclerae anicteric. No conjunctival injection. Nasal mucosa moist. Oral mucosa moist. No pharyngeal erythema, discharge, or exudate. Neck: Supple, nontender. No lymphadenopathy. No carotid bruits auscultated. No JVD. Cardiac: Regular rate and rhythm. No clicks, murmurs, gallops, or rubs. Pulses are 2+ in the bilateral dorsalis pedis, posterior tibialis, and radial areas. Respiratory: Clear to auscultation bilaterally. No wheezes, rales or rhonchi. Good air exchange bilaterally. Abdomen: Soft, nontender, nondistended. Bowel sounds present and normoactive in all 4 quadrants. No hepatosplenomegaly. No abdominal bruits auscultated. No hepatojugular reflux. Genitourinary: No suprapubic or CVA tenderness. Skin: Clean, dry, and intact. No rash. Neuro: Weakness with plantar and dorsiflexion of the left foot. Sensory deficits consistent with peripheral neuropathy in the bilateral feet, left worse than right. No other neurologic deficits. Cranial nerves II through XII are intact. Alert and oriented x3. Psychiatric: Pleasant and cooperative. DISCHARGE PLAN: The patient will be discharged to home. The patient will have p.o. Dilaudid for pain control. The patient is to follow up with her primary care doctor within 1 week to assess her ongoing pain needs and obtain another prescription for pain medication as appropriate. Patient should also follow up with Dr. Greer in the pain clinic within 2 weeks. This appointment has already been made for her. As discussed with Dr. Greer, patient should continue with outpatient physical therapy. Patient should follow up with Dr. Forrest as needed for failure of conservative treatment and indication for surgery. Patient should return to the hospital for alarming symptoms such as chest pain, shortness of breath, passing out, increased vaginal bleeding, severe or worsening in her numbness or her pain, loss of bowel or bladder control, or saddle paresthesias. Patient should engage in activities as tolerated and have a heart-healthy diet without caffeine. TIME SPENT: Approximately 75 minutes were spent on the discharge of this patient, 45 of which was spent [id number] with the patient obtaining history and physical and discussing treatment plan. KAREN KRUEGER [id number]/CPS #: [id number]
== END 2018-09-12 15:45 | disposition home or self-care (01) ==
LOC: ED 10:26 → MED 17:20 → INTOOBSV 09-11 15:16 → OBSVTOIN 09-11 15:16
PROVIDERS: ADMIT Hospitalist; ATTEND Internal Medicine
DX: M54.10 Radiculopathy, site unspecified (principal); M51.26 Other intervertebral disc displacement, lumbar region; C90.00 Multiple myeloma not having achieved remission; K50.90 Crohn's disease, unspecified, without complications; L40.9 Psoriasis, unspecified; J45.909 Unspecified asthma, uncomplicated; I10 Essential (primary) hypertension; E66.01 Morbid (severe) obesity due to excess calories; Z87.891 Personal history of nicotine dependence
CPT/HCPCS: 36415; 71046; 72148; 80048; 83735; 85025; 96372; 96374; 96375; 96376; 99283; A9270-GY; G0378; J1100; J1170; J1650; J2405; J7512

== ENCOUNTER 2021-01-05 07:03 | Observation (INO) ==
[~2021-01-05 07:03] MED LIST: Buffered Lidocaine 1% SYRIN 1 ml INTRADERM ONE; Dexamethasone IV 4 MG/ML VIAL 1 ml VIAL IV SLOW PU ONE; Famotidine IV 10 MG/ML 2 ml VIAL (20 mg) IV ONE; Lactated Ringers 1000 ml BAG 1,000 ML IV SCH
[2021-01-05] MEDS ORDERED: Famotidine IV 10 MG/ML 2 ml VIAL (20 mg) ONE (07:23)
[2021-01-05] MEDS ORDERED: Dexamethasone IV 4 MG/ML VIAL 1 ml VIAL ONE (07:23)
[2021-01-05] MEDS ORDERED: Vancomycin 1,500 MG in NS 0.9% 250 ml 250 ML IVPB ONE (08:00)
[2021-01-05] MEDS ORDERED: Propofol 10 mg/ml 100 ML BTL 100 ML ONE (08:44)
[2021-01-05] MEDS ORDERED: Ropivacaine 5 MG/ML 20 ML VIAL 0.5% (100 MG) ONE ×2 (08:47→08:48)
[2021-01-05] MEDS ORDERED: Midazolam 2 mg/2 ml VIAL 1 mg/ml 2 ml VIAL (2 mg) ONE ×2 (08:48→09:12)
[2021-01-05] MEDS ORDERED: ROPIVACAINE 5 MG/ML 30 ML BTL (0.5%) ONE (09:05)
[2021-01-05] MEDS ORDERED: fentaNYL 100 mcg/2 ml 50 MCG/ML VIAL ONE (09:13)
[2021-01-05] MEDS ORDERED: HYDROmorphone 1 MG/1 ML SYRINGE IV PRN (11:07)
[2021-01-05] MEDS ORDERED: Naloxone 0.4 mg VIAL 0.4 mg/ml 1 ml VIAL IV PRN (11:07)
[2021-01-05] MEDS ORDERED: fentaNYL 100 mcg/2 ml 50 MCG/ML VIAL IV PRN (11:07)
[2021-01-05] MEDS ORDERED: Prochlorperazine 5 mg/ml 2 ml VIAL (10 mg) IV PRN (11:07)
[2021-01-05] MEDS ORDERED: Magnesium Hydroxide LIQ 30 ML UDC PO PRN (12:26)
[2021-01-05] MEDS ORDERED: Ondansetron ODT 4 mg TAB 4 MG TAB PO PRN (12:26)
[2021-01-05] MEDS ORDERED: Lactulose 30 ml UDC PO PRN (12:26)
[2021-01-05] MEDS ORDERED: diPHENhydraMINE 25 mg TAB PO PRN (12:26)
[2021-01-05] MEDS ORDERED: Ondansetron 4 mg VIAL 2 MG/ML 2 ml VIAL IV PRN (12:26)
[2021-01-05] MEDS ORDERED: diPHENhydraMINE IV 50 MG/ML 1 ml VIAL (BENADRYL) IV PRN (12:26)
[2021-01-05] MEDS ORDERED: HYDROmorphone 0.5 MG/0.5 ML SYRINGE IV SLOW PU PRN (12:38)
[2021-01-05] MEDS ORDERED: Vancomycin per Pharmacy 1 EA NOTE FOLLOW UP SCH (13:00)
[2021-01-05] MEDS: Lactated Ringers 1000 ml BAG 1,000 ML IV SCH (15:38)
[2021-01-05] MEDS: Vancomycin 1000 MG in NS 0.9% 250 ML IVPB SCH (20:25)
[2021-01-05] MEDS: Magnesium Hydroxide LIQ 30 ML UDC PO SCH (20:30)
[2021-01-05] MEDS ORDERED: NON FORMULARY MED (Irbesartan 300 MG tablet) PO SCH (21:00)
[2021-01-05] MEDS ORDERED: Albuterol HFA INHALER 8 gm MDI INH PRN (21:05)
[2021-01-05] MEDS: Mometasone/Formoter 200/5 MDI INH SCH (22:18)
[2021-01-05 23:58] LABS: Calcium 8.5 mg/dL (8.6-10.3); EGFR African American 84.6 (>60); EGFR Non-African American 69.9 (>60); Magnesium 1.5 mg/dL (1.9-2.7); Potassium 4.1 mmol/L (3.5-5.0)
[2021-01-06] MEDS ORDERED: Magnesium Sulfate IV 3 GM in NS 0.9% 100 ml BAG 100 ML IVPB ONE (00:36)
[2021-01-06] MEDS: Lactated Ringers 1000 ml BAG 1,000 ML IV SCH (06:04)
[2021-01-06 06:48] LABS: Hematocrit 33 % (35-47); Hemoglobin 11.1 g/dL (12.0-16.0); Mean Platelet Volume 7.8 fL (7.4-10.4); Platelet Count 265 10^3/uL (150-450)
[2021-01-06 07:06] LABS: Calcium 8.6 mg/dL (8.6-10.3); EGFR African American 85.8 (>60); EGFR Non-African American 70.9 (>60); Potassium 4.7 mmol/L (3.5-5.0)
[2021-01-06] MEDS: Vancomycin 1000 MG in NS 0.9% 250 ML IVPB SCH (08:01)
[2021-01-06] MEDS ORDERED: Vitamin THERAPEUTIC TAB PO SCH (09:00)
[2021-01-06] MEDS: Magnesium Hydroxide LIQ 30 ML UDC PO SCH (09:13)
[2021-01-06] MEDS: Mometasone/Formoter 200/5 MDI INH SCH (09:17)
[2021-01-06 11:27] VITALS: BP 155/72
== END 2021-01-06 16:15 | disposition home or self-care (01) ==
LOC: SSU 07:03 → OR 07:03
PROVIDERS: ADMIT Orthopaedic Surgery Adult Reconstructive Orthopaedic Surgery; ATTEND Orthopaedic Surgery Adult Reconstructive Orthopaedic Surgery